=== PATIENT | female | born 1985 | race Caucasian/White ===

== ENCOUNTER 2018-06-24 21:46 | Emergency (ER) | payer OTHER ==
[~2018-06-24] VITALS: Ht 177.8 cm; Wt 106.6 kg
--- NOTE | 2018-06-24 22:06 | ED Headache ---
General Stated Complaint: HEAD PAIN History of Present Illness Date Seen by Provider: Jun 24, 2018 Time Seen by Provider: 21:55 Timing/Duration: 4-6 hours Severity/Quality: moderate Location: frontal (right), temporal (right) Prior Headaches/Recent Trauma: chronic headaches Modifying Factors: improves with exposure to light Associated Symptoms: nausea/vomiting (nausea, no vomiting) The patient is a pleasant 32-year-old female who presents for evaluation of a right frontal headache which began approximately 6 hours ago. It is in the frontal and right temporal region. She reports a history of chronic headaches/ migraines and states that she has had many several similar headaches to this. She does report that it is more severe than it usually is but that she has had similar severity headaches in the past. She denies any neck pain or neck stiffness, fevers or chills, recent head injury, focal weakness or focal numbness. She is alert and oriented 4, calm, appears to be in no distress. She tried taking Tylenol, ibuprofen, and Excedrin at home with little relief. She mentions that she used to be on Topamax in the past and this was very helpful but she is not currently taking any. Allergies and Home Medications Allergies Uncoded Allergies: PCN (Allergy, Unknown, 06/24/18) Patient Home Medication List Home Medication List Reviewed: Yes Review of Systems Review of Systems Constitutional: no symptoms reported Eyes: No Symptoms Reported Ears, Nose, Mouth, Throat: no symptoms reported Respiratory: no symptoms reported Cardiovascular: no symptoms reported Gastrointestinal: no symptoms reported Genitourinary: no symptoms reported Musculoskeletal: no symptoms reported Skin: no symptoms reported Psychiatric/Neurological: Headache All Other Systems Reviewed Negative Unless Noted: Yes Past Eouvkeg-Azaruw-Vsznjn Hx Patient Social History Recent Foreign Travel: No Contact w/Someone Who Travel: No Physical Exam Vital Signs Capillary Refill : Height, Weight, BMI Height: '" Weight: lbs. oz. kg; BMI Method: General Appearance: WD/WN HEENT: PERRL/EOMI, normal ENT inspection, TMs normal Neck: non-tender, full range of motion, supple, normal inspection Cardiovascular: regular rate, rhythm, no edema, no JVD Respiratory: chest non-tender, lungs clear, normal breath sounds, no respiratory distress Gastrointestinal: normal bowel sounds, non tender, soft Extremities: normal range of motion, non-tender, no pedal edema Psychiatric: alert, oriented x 3 Crainal Nerves: normal hearing, normal speech, PERRL Motor/Sensory: no motor deficit, no sensory deficit Skin: normal color, warm/dry Progress/Results/Core Measures Results/Orders Lab Results Laboratory Tests Test 06/24/18 22:18 Range/Units Urine Test NEGATIVE NEGATIVE My Orders Orders - PHAN MILLS DO Saline Lock/Iv-Start (06/24/18 21:59) Hcg,Qualitative Urine (06/24/18 22:06) Ketorolac Injection (Toradol Injection) (06/24/18 22:45) Metoclopramide Injection (Reglan Injecti (06/24/18 22:45) Diphenhydramine Injection (Benadryl Inje (06/24/18 22:45) Ns Iv 1000 Ml (Sodium Chloride 0.9%) (06/24/18 22:45) Medications Given in ED Current Medications Medications Dose Ordered Sig/Nay Route Start Time Stop Time Status Last Admin Dose Admin Diphenhydramine HCl 25 mg ONCE ONCE IVP 06/24/18 22:45 06/24/18 22:46 DC 06/24/18 23:55 25 MG Ketorolac Tromethamine 30 mg ONCE ONCE IVP 06/24/18 22:45 06/24/18 22:46 DC 06/24/18 23:53 30 MG Metoclopramide HCl 10 mg ONCE ONCE IVP 06/24/18 22:45 06/24/18 22:46 DC 06/24/18 23:49 10 MG Progress Progress Note : Time: 00:02 Progress Note @0002 - Patient reports that her headache is starting to get better. The patient was sleeping when I entered the room to evaluate her. @0018 -workup fails to reveal red flags for serious headache etiology. I did explain to the patient that our CT scanner was down but that transfer to obtain a CT head was an option and she declines. I do not feel that she needs a CT head at this time. She is sleeping in the room and easy to wake up and states that she is feeling much better. She will go home with a prescription for Imitrex. Advised the patient to follow up with her PCP in the next 2-3 days. Departure Impression Primary Impression: Migraine Disposition: 01 HOME, SELF-CARE Condition: Stable Departure-Patient Inst. Referrals: PETERSON SORTO APRN (PCP/Family) Primary Care Physician Patient Instructions: Migraine Headache (DC) Add. Discharge Instructions: Follow-up with your doctor in the next 2-3 days. Return to the emergency Department immediately for new or worsening symptoms. Take the prescribed medicine as directed, as needed for your migraine. Scripts Sumatriptan Succinate (Imitrex) 25 Mg Tablet 25 MG PO Q8H PRN for MIGRAINE for 7 Days, #20 TAB Prov: PHAN MILLS DO 06/25/18 PHAN MILLS DO Jun 24, 2018 22:06
[2018-06-24] MEDS ORDERED: KETOROLAC 30 MG/ML VIAL IVP ONE (22:45)
[2018-06-24] MEDS ORDERED: diphenhydrAMINE 50 MG/ML INJ (BENADRYL) IVP ONE (22:45)
[2018-06-24] MEDS ORDERED: NS IV 1000 ML 1,000 ML IV SCH (22:45)
[2018-06-24] MEDS ORDERED: METOCLOPRAMIDE INJ 10 MG/2 ML (REGLAN) IVP ONE (22:45)
--- NOTE | 2018-06-24 23:58 | NUR ---
Pt. sleeping stated her pain was now an 8 on the 1-10 scale.
[2018-06-25] MEDS ORDERED: SUMA25TA3 PO (00:18)
[2018-06-25 00:32] VITALS: BP 121/86
== END 2018-06-25 00:32 | disposition home or self-care (01) ==
LOC: ER FS 21:48
DX: G43.909 Migraine, unspecified, not intractable, without status migrainosus (principal); Z88.0 Allergy status to penicillin
CPT/HCPCS: 84703; 96361; 96374; 96375

== ENCOUNTER 2018-06-27 20:55 | Emergency (ER) | payer OTHER ==
[~2018-06-27] VITALS: Ht 177.8 cm; Wt 90.7 kg
[~2018-06-27 20:55] MED LIST: SUMA25TA3 PO
[2018-06-27] MEDS ORDERED: DICYCLOMINE 10 MG/ML (BENTYL) 2 ML AMP IM ONE (21:15)
[2018-06-27] MEDS ORDERED: FAMOTIDINE 20MG/2ML IV (PEPCID) IVP ONE (21:15)
[2018-06-27 22:07] LABS: BILIRUBIN,URINE NEGATIVE (NEGATIVE); CLARITY,URINE CLEAR; COLOR,URINE YELLOW; GLUCOSE, URINE (UA) NEGATIVE (NEGATIVE); KETONES,URINE NEGATIVE (NEGATIVE); LEUKOCYTE ESTERASE ,URINE TRACE (NEGATIVE); NITRITE,URINE NEGATIVE (NEGATIVE); PH,URINE 7.5 (5-9); PROTEIN,URINE NEGATIVE (NEGATIVE); UROBILINOGEN,URINE 0.2 MG/DL (NORMAL)
[2018-06-27 22:08] LABS: HCG,QUALITATIVE URINE NEGATIVE (NEGATIVE)
[2018-06-27] MEDS ORDERED: DICY20TA10 PO (22:24)
[2018-06-27] MEDS ORDERED: ONDA4TAB11 PO (22:24)
[2018-06-27 22:31] VITALS: BP 125/89
--- NOTE | 2018-06-28 05:47 | Diagnostic Imaging Report ---
CLINICAL INDICATION: Patient with nausea, vomiting that started today. Patient has history of tubal ligation. EXAMS: X-ray of the chest PA view and x-ray of the abdomen supine and upright views. COMPARISONS: None. FINDINGS: LUNGS/ PLEURA: Lungs are clear. There is no pneumothorax. There is no pleural effusion. MEDIASTINUM: Unremarkable. PULMONARY VASCULATURE: Unremarkable. HEART: Unremarkable. BONES/ EXTRATHORACIC SOFT TISSUE: Unremarkable. ABDOMEN AND PELVIS: There are nonspecific multiple air-fluid levels overlying the right abdomen which appear to involve the right colon region. The right colon region is not significantly dilated. There is a paucity of bowel gas overlying the left abdomen. There is no evidence of abdominal free air. There are no focal calcifications overlying the expected regions/ pathways of both kidneys, ureters, and bladder regions. IMPRESSION: 1: Nonspecific bowel gas pattern with air-fluid levels overlying the right colon region which are not significantly dilated. This may be related to colitis or diarrhea. Partial colonic obstruction or ileus cannot be completely excluded. If there is continued concern for obstruction, then CT scan would better evaluate. 2: There is no radiographic evidence of acute cardiopulmonary process. Dictated by: Dictated on workstation # [id number]
--- NOTE | 2018-07-22 09:46 | ED General ---
General Chief Complaint: Abdominal/GI Problems Stated Complaint: ABD PAIN Nursing Triage Note: COMPLAINT OF N/V/D TODAY Nursing Sepsis Screen: No Definite Risk History of Present Illness Date Seen by Provider: Jun 27, 2018 Time Seen by Provider: 11:11 Initial Comments 32-year-old female seen emergency For headache 3 days ago presents with abdominal pain nausea vomiting with occasional diarrhea. No dizziness lightheadedness. No fever chills, sweats. Reports mild abdominal cramping. No dysuria, urinary frequency or urgency or burning. No prior abdominal surgeries. Timing/Duration: 24 Hours Associated Systoms: Loss of Appetite Allergies and Home Medications Allergies Uncoded Allergies: PCN (Allergy, Unknown, 06/24/18) Home Medications Dicyclomine HCl 20 Mg Tablet, 20 MG PO QID Prescribed by: ROBERTA SAMUEL on 06/27/182223 Ondansetron 4 Mg Tab.rapdis, 4 MG PO Q6H Prescribed by: ROBERTA SAMUEL on 06/27/182223 Sumatriptan Succinate 25 Mg Tablet, 25 MG PO Q8H PRN for MIGRAINE Prescribed by: LIAN MCKEON on 06/25/18 0018 Patient Home Medication List Home Medication List Reviewed: Yes Review of Systems Review of Systems Constitutional: no symptoms reported EENTM: see HPI Cardiovascular: see HPI Genitourinary: see HPI Musculoskeletal: see HPI Psychiatric/Neurological: See HPI, Anxiety Hematologic/Lymphatic: See HPI Past Lsldrcq-Xibsea-Mxymod Hx Patient Social History Alcohol Use: Denies Use Recreational Drug Use: No Smoking Status: Current Everyday Smoker Type Used: Cigarettes 2nd Hand Smoke Exposure: Yes Recent Foreign Travel: No Contact w/Someone Who Travel: No Recent Infectious Disease Expo: No Physical Exam Vital Signs Capillary Refill : Less Than 3 Seconds Height, Weight, BMI Height: 5'10.00" Weight: 200lbs. oz. 90.361125kz; BMI Method:Estimated General Appearance: WD/WN, Anxious Eyes: Bilateral Eye Normal Inspection, Bilateral Eye PERRL, Bilateral Eye EOMI HEENT: PERRL/EOMI, TMs Normal Neck: Full Range of Motion, Normal Inspection, Supple Respiratory: Chest Non Tender, Lungs Clear, Normal Breath Sounds Cardiovascular: No Edema Gastrointestinal: Normal Bowel Sounds Back: Normal Inspection, No CVA Tenderness Neurologic/Psychiatric: Alert, Oriented x3, Abnormal position classification specialist II-XII, Abnormal Gait Skin: Normal Color Focused Exam Sepsis Stage: Ruled Out Progress/Results/Core Measures Suspected Sepsis Recent Fever Within 48 Hours: No Infection Criteria Present: None New/Unexplained Altered Menta: No Sepsis Screen: No Definite Risk SIRS Temperature:98.0 Pulse: 80 Respiratory Rate: 18 Blood Pressure 125 /89 Mean: 101 Results/Orders Vital Signs/I&O Capillary Refill : Less Than 3 Seconds Blood Pressure Mean: 101 Departure Communication (Admissions) No vomiting or diarrhea in the ED. Soft, nonsurgical. Recommend supportive care with PCP follow-up. Impression Primary Impression: Abdominal pain Additional Impressions: Nausea and vomiting Diarrhea Disposition: HOME, SELF-CARE Condition: Improved Departure-Patient Inst. Referrals: [facility] (PCP) Primary Care Physician Patient Instructions: Diarrhea in Adolescents and Adults, Acute Abdomen (Belly Pain), Adult (DC) Add. Discharge Instructions: Please take nausea medication as directed and Bentyl as needed for pain. Drink clear liquids only for the next 6-12 hours and gradually increase to bland diet as tolerated. Follow-up with your PCP if symptoms persist. Return to the ED if new or worsening symptoms All discharge instructions reviewed with patient and/or family. Voiced understanding. Scripts Ondansetron (Ondansetron Odt) 4 Mg Tab.rapdis 4 MG PO Q6H, #10 TAB Prov: ROBERTA SAMUEL DO 06/27/18 Dicyclomine HCl (Dicyclomine HCl) 20 Mg Tablet 20 MG PO QID, #20 TAB Prov: ROBERTA SAMUEL DO 06/27/18 ROBERTA SAMUEL DO Jul 22, 2018 09:46
== END 2018-06-27 22:35 | disposition home or self-care (01) ==
LOC: EDUNIT# 20:55 → ER FS 20:56
DX: R10.9 Unspecified abdominal pain (principal); R11.2 Nausea with vomiting, unspecified; R19.7 Diarrhea, unspecified; F17.210 Nicotine dependence, cigarettes, uncomplicated; Z88.0 Allergy status to penicillin
CPT/HCPCS: 74022; 81002; 84703; 96372; 96374

== ENCOUNTER → 2018-08-03 | Emergency (ER) | payer OTHER ==
[~2018-08-03] VITALS: Ht 165.1 cm; Wt 65.8 kg
[~2018-08-03] MED LIST changes: +DICY20TA10 PO; +ONDA4TAB11 PO
--- NOTE | 2018-08-03 12:30 | ED Cough/URI ---
General Stated Complaint: SORE THROAT Source: patient, other Exam Limitations: no limitations History of Present Illness Date Seen by Provider: Aug 03, 2018 Time Seen by Provider: 11:41 Initial Comments Patient presents to ER by private conveyance with chief complaint that she's had sore throat for past couple days. Her voice is changed. She's had malaise but no fevers or chills. She is concerned about cost something needs some antibiotics. She is not using vapor rubs humidifiers, Tylenol or Motrin. She does not smoke cigarettes. Her tubes are tied. Allergies and Home Medications Allergies Uncoded Allergies: PCN (Allergy, Unknown, 06/24/18) Home Medications Dicyclomine HCl 20 Mg Tablet, 20 MG PO QID Prescribed by: ROBERTA SAMUEL on 06/27/182223 Ondansetron 4 Mg Tab.rapdis, 4 MG PO Q6H Prescribed by: ROBERTA SAMUEL on 06/27/182223 Sumatriptan Succinate 25 Mg Tablet, 25 MG PO Q8H PRN for MIGRAINE Prescribed by: LINA MCKEON on 06/25/18 0018 Patient Home Medication List Home Medication List Reviewed: Yes Review of Systems Review of Systems Constitutional: No chills, No fever; malaise EENTM: No ear discharge, No hearing loss, No ear pain, No eye pain Respiratory: No cough, No phlegm, No short of breath Cardiovascular: No chest pain, No palpitations Gastrointestinal: No abdominal pain, No constipation, No diarrhea Past Zwbpiel-Bbkpdw-Dkrxnk Hx Patient Social History Alcohol Use: Denies Use Recreational Drug Use: No Smoking Status: Former Smoker Type Used: Cigarettes 2nd Hand Smoke Exposure: Yes Physical Exam Capillary Refill : Height: 5'10.00" Weight: 200lbs. oz. 90.609635sk; BMI Method:Estimated General Appearance: WD/WN, no apparent distress Eyes: Bilateral Eye Normal Inspection, Bilateral Eye PERRL, Bilateral Eye EOMI HEENT: PERRL/EOMI, normal ENT inspection, TMs normal, pharyngeal erythema; No tonsillar exudate Neck: non-tender, full range of motion, supple, normal inspection Progress/Results/Core Measures Suspected Sepsis SIRS Temperature: Pulse: Respiratory Rate: Blood Pressure / Mean: Results/Orders Lab Results Laboratory Tests Test 08/03/18 11:48 Range/Units Group A Streptococcus Screen NEGATIVE NEGATIVE My Orders Orders - ANTONI TORRES Rapid Strep A Screen (08/03/18 11:39) Vital Signs/I&O Capillary Refill : Departure Impression Primary Impression: Pharyngitis with viral syndrome Disposition: HOME, SELF-CARE Condition: Stable Departure-Patient Inst. Decision time for Depature: 12:29 Referrals: PETERSON SORTO APRN (PCP) Primary Care Physician JADEN PENN MD (Family) Primary Care Physician Patient Instructions: Viral Pharyngitis Add. Discharge Instructions: Humidifiers, hot tea's with honey or limiting as well as salt water gargles as necessary for your symptoms. You can use lozenges [id number]. Tylenol and ibuprofen may be helpful if you have pain. We will culture the swab and should have a result in 2 days. If it comes back positive we will call you as well as phone in an antibiotic for you. ANTONI TORRES Aug 03, 2018 12:30
[2018-08-03 12:36] VITALS: BP 151/100
== END | disposition home or self-care (01) ==
LOC: EDUNIT# 11:32 → ER FS 11:38
DX: J02.9 Acute pharyngitis, unspecified (principal); Z88.0 Allergy status to penicillin; Z87.891 Personal history of nicotine dependence
CPT/HCPCS: 87430; 99284

== ENCOUNTER 2019-02-24 01:59 | Emergency (ER) | payer SELFPAY ==
[~2019-02-24] VITALS: Ht 177.8 cm; Wt 111.5 kg
[2019-02-24] MEDS ORDERED: CYCL5TAB PO (02:10)
[2019-02-24] MEDS ORDERED: NAPR-1071 PO (02:11)
--- NOTE | 2019-02-24 02:11 | ED Neck-Back Pain/Injury ---
General Stated Complaint: NECK AND SHOULDER PAIN Source of Information: Patient, EMS History of Present Illness Date Seen by Provider: Feb 24, 2019 Time Seen by Provider: 02:05 Initial Comments 33-year-old female presents with right lateral neck spasm and right shoulder pain. Patient reports she's been having issues for at least a week. Patient was lying embellish number phone when she got spasm in her right lateral neck. She has no acute injury. She is had Flexeril for this in the past but could not find it. Patient did not take anything for it. She called EMS and came to the ER. No numbness tingling or bowel or bladder issues. No other systemic complaints. Allergies and Home Medications Allergies Uncoded Allergies: pcn (Allergy, Mild, 02/24/19) Patient Home Medication List Home Medication List Reviewed: Yes Review of Systems Constitutional: no symptoms reported, see HPI Respiratory: no symptoms reported Cardiovascular: no symptoms reported Gastrointestinal: no symptoms reported Musculoskeletal: see HPI Skin: no symptoms reported Past Iqhyoag-Tgredg-Kyiijb Hx Past Med/Social Hx: Reviewed Nursing Past Med/Soc Hx Patient Social History Recent Foreign Travel: No Contact w/Someone Who Travel: No Physical Exam Vital Signs Capillary Refill : Height, Weight, BMI Height: '" Weight: lbs. oz. kg; BMI Method: General Appearance: No Apparent Distress, WD/WN Neck: Other (mild tenderness along the right trapezius distribution with mild spasm) Cardiovascular: Regular Rate, Rhythm Respiratory: Lungs Clear, Normal Breath Sounds Neurologic/Psychiatric: Alert, Oriented x3, No Motor/Sensory Deficits, Normal Mood/Affect, loans consultant II-XII Norm as Tested Skin: Normal Color, Warm/Dry Progress/Results/Core Measures Results/Orders My Orders Orders - IAIN ALMEIDA DO Ketorolac Injection (Toradol Injection) (02/24/19 02:15) Orphenadrine Injection (Norflex Injectio (02/24/19 02:15) Departure Impression Primary Impression: Strain of cervical portion of right trapezius muscle Additional Impression: Strain of right trapezius muscle Qualified Codes: S46.811A - Strain of other muscles, fascia and tendons at shoulder and upper arm level, right arm, initial encounter Disposition: 01 HOME, SELF-CARE Condition: Stable Departure-Patient Inst. Patient Instructions: Cervical Muscle Strain, Muscle Strain, Generalized Neck Pain (DC) Scripts Naproxen (Naprosyn) 500 Mg Tablet 500 MG PO BID, #30 TAB 0 Refills Prov: IAIN ALMEIDA DO 02/24/19 Cyclobenzaprine HCl (Cyclobenzaprine HCl) 5 Mg Tablet 5 MG PO Q8H PRN for PAIN-MILD, #10 TAB Prov: IAIN ALMEIDA DO 02/24/19 IAIN ALMEIDA DO Feb 24, 2019 02:10
[2019-02-24] MEDS ORDERED: KETOROLAC 60 MG/2 ML VIAL IM ONE (02:15)
[2019-02-24] MEDS ORDERED: ORPHENADRINE 60 MG/2 ML (NORFLEX) AMP IM ONE (02:15)
[2019-02-24 02:20] VITALS: BP 149/90
== END 2019-02-24 02:20 | disposition home or self-care (01) ==
LOC: ER FS 02:03 → MERGE 02:03 → ER FS 02:20
DX: S29.012A Strain of muscle and tendon of back wall of thorax, initial encounter (principal); Z88.0 Allergy status to penicillin
CPT/HCPCS: 99284

== ENCOUNTER 2019-08-28 20:17 | Observation (INO) | payer SELFPAY ==
[~2019-08-28] VITALS: Ht 180.3 cm; Wt 111.1 kg
[~2019-08-28 20:17] MED LIST changes: +CYCL5TAB PO; +NAPR-1071 PO
--- NOTE | 2019-08-28 20:24 | NUR ---
Around 1944 pt ingested 4 pills of Remeron 15mg, 2 pills of Baclofen 10mg, 4 pills of Hydroxyzine 25mg, 4 pills of Buspirone 5mg, 4 pills of Buspirone 7.5mg, and 5 pills of Alprazolam 1mg.
--- OUTSIDE RECORDS SUMMARY | 2019-08-28 20:28 | XMS REPORT ---
Author Author [facility] Organization [facility] Address Unknown Phone Unavailable Allergies No Known Allergy Information Encounters Program Name Primary Diagnosis Admission Date/Time Discharge Date/Time Family Preservation ThuJun 16 14:04:00 EST 2019 Immunizations No Known Immunizations Lab Results No Known Laboratory Results Medical Equipment No Known Medical Equipment Medications No Known Medication Information Treatment Plan No Treatment Plan Information Problems No Known Problems Procedures No Known Procedures Social History Social History Observation Description Date Sex Female ThuJul 30 00:00:00 EST 1985 Vital Signs No Known Vitals
--- OUTSIDE RECORDS SUMMARY | 2019-08-28 20:28 | XMS REPORT ---
Author Author Darya PENN Organization [facility] Address [address] [address] Care Team Providers Care Train Director Name Role Phone JADEN PENN Unavailable PROBLEMS Type Condition ICD9-CM Code [id number] Code Onset Dates Condition S tatus SNOMED Code Problem Menorrhagia with irregular cycle N92.1 Active 337543858 Problem Primary insomnia F51.01 Active 397 2004 Problem Generalized anxiety disorder F41.1 A ctive [id number] Problem Hypothyroidism, unspecified type E03.9 Active [id number] ALLERGIES Substance Reaction Event Type Date Status Penicillamine rash Drug Allergy Jul, Active ENCOUNTERS Encounter Location Date Diagnosis [facility] [address] [place] [phone] Jul, Generalized anxiety disorder F41.1 and Primary insomnia F51.01 [facility] [address] [facility] [id number] [place] [address] Jul, Influenza A J10.1 ; Fever and chills R50 .9 and Cough R05 [place] [address] [place] [address] [phone] Jul, Influenza A J10.1 [facility] [address] [place] [address] [phone] Jul, [facility] [address] [place] [address] [phone] Jun, [facility] [address] [place] [phone] Jun, Generalized anxiety disorder F41.1 and Primary insomnia F51.01 [facility] [address] [place] [address] [phone] May, [facility] [address] [place] [address] [phone] 14 May, 2018 Hypothyroidism, unspecified type E03.9 ; Generalized anxiety disorder F41.1 and Menorrhagia with irregular cycle N92.1 IMMUNIZATIONS No Known Immunizations SOCIAL HISTORY Never Assessed REASON FOR VISIT Congestion, fever. DARREN Santillan PLAN OF CARE Activity Details Follow Up for worsening or failure to resolve. Reason: VITAL SIGNS Height 70 in 2018-07-09 Weight 235.8 lbs 2018-07-09 Temperature 101.1 degrees Fahrenheit 2018-07-09 Respiratory Rate 18 2018-07-09 BMI 33.83 kg/m2 2018-07-09 Blood pressure systolic 118 mmHg 2018-07-09 Blood pressure diastolic 80 mmHg 2018-07-09 MEDICATIONS Medication Instructions Dosage Frequency Start Date End Date Duration S tatus Remeron 15 mg Orally Once a day 1-2 tablet at bedtime 24h 30 day(s) Active Imitrex 25 MG Orally Twice a day 1 tablet as needed 12h Jul, 7 days Active Tamiflu 75 MG Orally Twice a day 1 capsule 12h Jul, 5 day(s) Active BusPIRone HCl 5 MG Orally Twice a day 1 tablet as needed 12h 30 days Active RESULTS No Results PROCEDURES No Known procedures INSTRUCTIONS MEDICATIONS ADMINISTERED No Known Medications MEDICAL (GENERAL) HISTORY Type Description Date Medical History anxiety Medical History depression Medical History spondylolithesis Surgical History tubal ligation Surgical History d&C x2 Hospitalization History anemia
--- OUTSIDE RECORDS SUMMARY | 2019-08-28 20:28 | XMS REPORT | Continuity of Care Document ---
Author Organization Unknown Address Unknown Phone Unavailable Allergies Active Description Code Type Severity Reaction Onset Reported/Identified Relationship to Patient Clinical Status Yes pcn pcn Mild N/A 02/24/2019 Medications Medication Packaging Start Date St op Date Route Dosage Sig MECLIZINE TAB, 25 MG (ANTIVERT) 05/15/2019 05/15/2019 ORAL 1 NS 0.9##37; 1000 ML 05/15/2019 05/15/2019 IV 1 Problems Date Dx Coded Attending Type Code Diagnosis Diagnosed By 05/16/2019 LINA GIFFORD [id number] Acute serous otitis media, left ear 05/16/2019 LINA GIFFORD R42 Dizziness and giddiness 05/16/2019 LINA GIFFORD R55 Syncope and collapse Procedures There is no data. Results Test Result Range CBCD (AUTO DIFF) - 05/15/19 22:04 WBC 7.6 x10 3UL 4.0 - 10.0 NEUTROPHIL % 59.5 % 30.0 - 75.0 LYMPHOCYTES % 32.5 % 18.0 - 40.0 MONOCYTES % 5.8 % 1.0 - 8.0 EOSINOPHILS % 1.7 % 0.0 - 3.0 BASOPHILS % 0.4 % 0.0 - 2.0 IMMAT GRAN % 0.1 % 0.0 - 1.0 RBC 4.17 MIL/UL 4.20 - 5.00 HGB 11.3 g/dL 12.0 - 15.0 HCT 34.4 % 37.0 - 47.0 MCV 83 FL 80 - 100 MCH 27.1 PG 26.0 - 35.0 MCHC 32.8 % 28.0 - 37.3 RDW 14.6 %CV 10.5 - 14.5 PLATELETS 272 X10 3UL 150 - 400 NRBC 0 % 0 - 0 DIFFERENTIAL AUTOMATED NRG COMP METAB PANEL - 05/15/19 22:04 GLUCOSE 88 MG/DL 65 - 110 BUN 16 MG/DL 7 - 21 CREATININE 0.5 mg/dl 0.7 - 1.5 BUN/CRE RATIO 32.0 7.0 - 25.0 SODIUM 140 MMOL/L 137 - 145 POTASSIUM 3.5 MMOL/L 3.6 - 5.0 CHLORIDE 109 MMOL/L 98 - 107 CO2 22 mmol/L 22 - 30 SGOT 27 U/L 8 - 39 SGPT 13 U/L 0 - 34 ALKALINE PHOS 83 U/L 20 - 155 TOTAL BILI 0.40 MG/DL 0.20 - 1.20 TOTAL PROTEIN 7.4 G/DL 6.3 - 8.2 ALBUMIN 4.1 G/DL 3.5 - 5.0 CALCIUM 9.1 MG/DL 8.4 - 10.2 AGE 33 YEARS NRG gfr 149 NRG eGFR >60 mL/min/BSA NRG TROPONIN I - 05/15/19 22:04 TROPONIN I <0.012 NG/ML 0.000 - 0.030 PREG URINE TEST - 05/15/19 22:26 URINE PREGNCY NEGATIVE NR: NEGATIVE DRUG SCREEN, RAPID (URINE) - 05/15/19 22 :26 DRUG SCREEN, RAPID (URINE) LAB NRG METHAMPHETAMINE NEGATIVE NR: NEGATAIVE COCAINE NEGATIVE NR: NEGATIVE MARIJUANA (THC) NEGATIVE NR: NEGATIVE MDMA NEGATIVE NR: NEGATIVE METHADONE NEGATIVE NR: NEGATIVE OPIATES NEGATIVE NR: NEGATIVE BENZODIAZEPINES NEGATIVE NR: NEGATIVE TCA NEGATIVE NR: NEGATIVE BARBITUATES NEGATIVE NR: NEGATIVE PCP NEGATIVE NR: NEGATIVE AMPHETAMINES NEGATIVE NR: NEGATIVE OXYCODONE NEGATIVE NR: NEGATIVE UA COMP CULT - 05/15/19 22:26 METHOD? Void NRG URINE COLOR YELLOW NR:YELLOW TURBIDITY CLEAR NR:CLEAR UR GLUCOSE NEGATIVE NR:NEGATIVE BILIRUBIN NEGATIVE NR:NEGATIVE KETONES NEGATIVE NR:NEGATIVE SPEC GRAVITY >=1.030 1.005-1.015 BLOOD 2+ NR:NEGATIVE pH 6.5 5.0 - 8.0 PROTEIN NEGATIVE NR:NEGATIVE UROBILINOGEN 1.0 <1.0 NITRITE NEGATIVE NR:NEGATIVE LEUK ESTERASE NEGATIVE NR:NEGATIVE MICROSCOPIC PERFORMED NRG WBC/HPF 0-5 HPF 0-4 /HPF RBC/HPF 4-10 HPF 0-4 /HPF BACTERIA TRACE NR: NEGATIVE MUCUS LIGHT NR: NEGATIVE EPI CELLS/LPF 25-50 NR: NONE SEEN REFLEX CULTURE? NO NRG MMR TITER - 08/23/19 15:26 RUBELLA ANTIBODY (IGG) 2.74 index NRG MEASLES ANTIBODY (IGG) 196.00 AU/mL NRG MUMPS VIRUS ANTIBODY (IGG) 143.00 AU/mL NRG HEP B CORE ANTIBODY, TOTAL IgG/IgM - 15:26 HEPATITIS B CORE AB TOTAL NON-REACTIVE NON-REACTIVE VARICELLA ANTIBODY, IgG - 08/23/19 15:26 VARICELLA ZOSTER VIRUS ANTIBODY (IGG) 732.80 index NRG Encounters ACCT No. Visit Date/Time Discharge Status Pt. Type Provider Facility Loc./Unit Complaint [id number] 05/15/2019 21:16:00 05/16/2019 00:22: 00 DIS Emergency LINA GIFFORD 014 NAUSEA, VOMITING, DIZZY [id number] 08/23/2019 14:40:00 08/23/2019 23:59: 59 CLS Outpatient PETERSON SORTO [facility] [id number] 08/23/2019 14:40:00 Document Registration [id number] 05/15/2019 21:16:00 Document Registration [id number] 02/24/2019 02:03:00 019 02:20:00 DIS Emergency IAIN ALMEIDA DO [facility] ER FS NECK AND SHOULDER PAIN
--- NOTE | 2019-08-28 20:36 | ED Psychosocial ---
General Stated Complaint: SUICIDAL Source: EMS Exam Limitations: intoxication History of Present Illness Date Seen by Provider: Aug 28, 2019 Time Seen by Provider: 20:25 Initial Comments Patient brought in by EMS after polypharmacy overdose full SSRIs benzos. Around 1700 due to family discord states she had suicidal intentions denies previous suicidal gestures she does have anxiety disorder patient is too sleepy to her cooperate with a detailed review of systems due to her intoxication Timing/Duration: this afternoon Associated Symptoms: ingestion Allergies and Home Medications Allergies Uncoded Allergies: pcn (Allergy, Mild, 02/25/19) PCN (Allergy, Unknown, 06/24/18) Home Medications Cyclobenzaprine HCl 5 Mg Tablet, 5 MG PO Q8H PRN for PAIN-MILD Prescribed by: IAIN ALMEIDA on 02/24/19 0210 Dicyclomine HCl 20 Mg Tablet, 20 MG PO QID Prescribed by: ROBERTA SAMUEL on 06/27/182223 Naproxen 500 Mg Tablet, 500 MG PO BID Prescribed by: IAIN ALMEIDA on 02/24/19 021 Ondansetron 4 Mg Tab.rapdis, 4 MG PO Q6H Prescribed by: ROBERTA SAMUEL on 06/27/18 222 Sumatriptan Succinate 25 Mg Tablet, 25 MG PO Q8H PRN for MIGRAINE Prescribed by: LINA CHISHOLM on 06/25/18 0018 Patient Home Medication List Home Medication List Reviewed: Yes Review of Systems Constitutional: see HPI EENTM: see HPI Respiratory: see HPI Cardiovascular: see HPI Gastrointestinal: see HPI Genitourinary: see HPI Musculoskeletal: see HPI Skin: see HPI Psychiatric/Neurological: No Symptoms Reported, See HPI Past Kxgqmsh-Ozyash-Xpeaev Hx Patient Social History Type Used: Cigarettes 2nd Hand Smoke Exposure: Yes Recent Foreign Travel: No Contact w/Someone Who Travel: No Recent Hopitalizations: No Seasonal Allergies Seasonal Allergies: No Past Medical History Surgeries: No Respiratory: No Cardiac: No Neurological: No 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 oz. 65.050313tv; 35.00 BMI Method:Estimated General Appearance: WD/WN, no apparent distress, other (fever with somewhat clear speech) HEENT: PERRL/EOMI, pharynx normal Neck: non-tender, supple Respiratory: chest non-tender, lungs clear, normal breath sounds Cardiovascular: regular rate, rhythm, no edema Gastrointestinal: normal bowel sounds, non tender Extremities: normal range of motion, non-tender, normal inspection Neurologic/Psychiatric: human resources admin II-XII nml as tested, no motor/sensory deficits, oriented x 3, depressed affect Appearance/Memory: impaired insight Behavior/Eye Contact: cooperative Thoughts/Hallucinations: normal thought pattern; No no apparent hallucination Skin: normal color, warm/dry Progress/Results/Core Measures Results/Orders Lab Results Laboratory Tests Test 08/28/19 20:34 08/28/19 20:50 Range/Units White Blood Count 8.7 4.3-11.0 10^3/uL Red Blood Count 4.66 4.35-5.85 10^6/uL Hemoglobin 12.3 11.5-16.0 G/DL Hematocrit 39 35-52 % Mean Corpuscular Volume 84 80-99 FL Mean Corpuscular Hemoglobin 26 25-34 PG Mean Corpuscular Hemoglobin Concent 32 32-36 G/DL Red Cell Distribution Width 14.6 H 10.0-14.5 % Platelet Count 284 130-400 10^3/uL Mean Platelet Volume 10.2 7.4-10.4 FL Neutrophils (%) (Auto) 69 42-75 % Lymphocytes (%) (Auto) 25 12-44 % Monocytes (%) (Auto) 5 0-12 % Eosinophils (%) (Auto) 1 0-10 % Basophils (%) (Auto) 0 0-10 % Neutrophils # (Auto) 6.0 1.8-7.8 X 10^3 Lymphocytes # (Auto) 2.2 1.0-4.0 X 10^3 Monocytes # (Auto) 0.5 0.0-1.0 X 10^3 Eosinophils # (Auto) 0.1 0.0-0.3 10^3/uL Basophils # (Auto) 0.0 0.0-0.1 10^3/uL Sodium Level 140 135-145 MMOL/L Potassium Level 3.8 3.6-5.0 MMOL/L Chloride Level 105 98-107 MMOL/L Carbon Dioxide Level 22 21-32 MMOL/L Anion Gap 13 5-14 MMOL/L Blood Urea Nitrogen 12 7-18 MG/DL Creatinine 0.62 0.60-1.30 MG/DL Estimat Glomerular Filtration Rate > 60 BUN/Creatinine Ratio 19 Glucose Level 98 70-105 MG/DL Calcium Level 9.1 8.5-10.1 MG/DL Corrected Calcium 9.0 8.5-10.1 MG/DL Total Bilirubin < 0.2 0.1-1.0 MG/DL Aspartate Amino Transf (AST/SGOT) 12 5-34 U/L Alanine Aminotransferase (ALT/SGPT) 8 0-55 U/L Alkaline Phosphatase 92 40-136 U/L Total Protein 7.0 6.4-8.2 GM/DL Albumin 4.1 3.2-4.5 GM/DL Salicylates Level < 0.3 L 5.0-20.0 MG/DL Acetaminophen Level < 10 L 10-30 UG/ML Serum Alcohol < 10 <10 MG/DL Urine Color STRAW Urine Clarity CLEAR Urine pH 6.5 5-9 Urine Specific [place] <=1.005 1.016-1.022 Urine Protein NEGATIVE NEGATIVE Urine Glucose (UA) NEGATIVE NEGATIVE Urine Ketones NEGATIVE NEGATIVE Urine Nitrite NEGATIVE NEGATIVE Urine Bilirubin NEGATIVE NEGATIVE Urine Urobilinogen 0.2 < = 1.0 MG/DL Urine Leukocyte Esterase NEGATIVE NEGATIVE Urine RBC (Auto) NEGATIVE NEGATIVE Urine RBC 0-2 /HPF Urine WBC 2-5 /HPF Urine Crystals PRESENT H /LPF Urine Bacteria TRACE /HPF Urine Casts NONE /LPF Urine Mucus SMALL H /LPF Urine Other SODIUM URATE CRYSTAL /HPF Urine Culture Indicated YES Urine Opiates Screen NEGATIVE NEGATIVE Urine Oxycodone Screen NEGATIVE NEGATIVE Urine Methadone Screen NEGATIVE NEGATIVE Urine Propoxyphene Screen NEGATIVE NEGATIVE Urine Barbiturates Screen NEGATIVE NEGATIVE Ur Tricyclic Antidepressants Screen NEGATIVE NEGATIVE Urine Phencyclidine Screen NEGATIVE NEGATIVE Urine Amphetamines Screen NEGATIVE NEGATIVE Urine Methamphetamines Screen NEGATIVE NEGATIVE Urine Benzodiazepines Screen POSITIVE H NEGATIVE Urine Cocaine Screen NEGATIVE NEGATIVE Urine Cannabinoids Screen NEGATIVE NEGATIVE My Orders Orders - LAMBERT,ANTHONY B DO Ua Culture If Indicated (08/28/19 20:26) Cbc With Automated Diff (08/28/19 20:26) Comprehensive Metabolic Panel (08/28/19 20:26) Alcohol (08/28/19 20:26) Drug Screen Stat (Urine) (08/28/19 20:26) Acetaminophen (08/28/19 20:26) Salicylate (08/28/19 20:26) Ekg Tracing (08/28/19 20:26) Ed Iv/Invasive Line Start (08/28/19 20:26) Monitor-Rhythm Ecg Trace Only (08/28/19 20:26) Bh Status Checks/Observation Q15M (08/28/19 20:26) Ed Iv/Invasive Line Start (08/28/19 20:26) Urine Bedside (08/28/19 20:26) Ns Iv 500 Ml (Sodium Chloride 0.9%) (08/28/19 20:30) Urine Culture (08/28/19 20:50) Vital Signs/I&O 08/28/19 20:24 Temp 36.2 Pulse 80 Resp 16 B/P (MAP) 132/77 (95) Pulse Ox 96 O2 Delivery Room Air Progress Progress Note : Time: 20:35 Progress Note Patient 3-1/2-4 hours into a polypharmacy overdose for suicide intentions. He will manically stable but somewhat sedate will require admission to the hospital for stepdown unit monitoring observation and psychiatric evaluation Initial ECG Impression Date: Aug 28, 2019 Initial ECG Impression Time: 20:36 Initial ECG Rate: 81 Initial ECG Rhythm: Normal Sinus Departure Impression Primary Impression: Drug overdose Additional Impression: Suicidal overdose Disposition: ADMITTED INPATIENT Condition: Stable Admissions Decision to Admit Reason: Admit from ER (General) Decision to Admit/Date: Aug 28, 2019 Time/Decision to Admit Time: 21:20 Transfer Transfer Reason: Exceeds level of care Time Spoke to Accepting Phy: 21:25 Transfer Progress Notes Patient's oxygen saturations are stable on room air blood pressure is normal heart rate is normal EKG shows no conduction abnormalities 4-1/2 hours into her overdose she is still somewhat sedate but is arousable but tactile stimulation and is agreeable to be transferred to [place] for overnight admission and psychiatric evaluation Method of Transfer: EMS (ALS) Departure-Patient Inst. Referrals: PETERSON SORTO APRN (PCP) Primary Care Physician JADEN PENN MD (Family) Primary Care Physician Patient Instructions: Suicide Prevention ANTHONY LAMBERT DO Aug 28, 2019 20:36
[2019-08-28 20:40] LABS: HEMATOCRIT 39 % (35-52); HEMOGLOBIN 12.3 G/DL (11.5-16.0); MEAN CORPUSCULAR HEMOGLOBIN 26 PG (25-34); WHITE BLOOD COUNT 8.7 10^3/uL (4.3-11.0)
[2019-08-28 20:41] LABS: BASOPHILS % (AUTO) 0 % (0-10); EOSINOPHILS # (AUTO) 0.1 10^3/uL (0.0-0.3); EOSINOPHILS % (AUTO) 1 % (0-10); LYMPHOCYTES # (AUTO) 2.2 X 10^3 (1.0-4.0); LYMPHOCYTES % (AUTO) 25 % (12-44); MEAN CORPUSCULAR HGB CONC 32 G/DL (32-36); MEAN CORPUSCULAR VOLUME 84 FL (80-99); MEAN PLATELET VOLUME 10.2 FL (7.4-10.4); MONOCYTES # (AUTO) 0.5 X 10^3 (0.0-1.0); MONOCYTES % (AUTO) 5 % (0-12); NEUTROPHILS % (AUTO) 69 % (42-75); PLATELET COUNT 284 10^3/uL (130-400); RED CELL DISTRIBUTION WIDTH 14.6 % (10.0-14.5)
[2019-08-28] MEDS: NS IV 500 ML 500 ML IV SCH (20:53)
[2019-08-28 21:02] LABS: POTASSIUM 3.8 MMOL/L (3.6-5.0); SODIUM 140 MMOL/L (135-145)
[2019-08-28 21:03] LABS: ACETAMINOPHEN < 10 UG/ML (10-30); ALANINE AMINOTRANSFERASE 8 U/L (0-55); ALBUMIN 4.1 GM/DL (3.2-4.5); ALKALINE PHOSPHATASE 92 U/L (40-136); BILIRUBIN,TOTAL < 0.2 MG/DL (0.1-1.0); BUN/CREATININE RATIO 19; CALCIUM 9.1 MG/DL (8.5-10.1); CARBON DIOXIDE 22 MMOL/L (21-32); CHLORIDE 105 MMOL/L (98-107); CREATININE SERUM 0.62 MG/DL (0.60-1.30); GFR ESTIMATED > 60; GLUCOSE 98 MG/DL (70-105); SALICYLATE < 0.3 MG/DL (5.0-20.0)
[2019-08-28 21:03] LABS: CLARITY,URINE CLEAR; COLOR,URINE STRAW
[2019-08-28 21:04] LABS: BACTERIA,URINE TRACE /HPF; BILIRUBIN,URINE NEGATIVE (NEGATIVE); GLUCOSE, URINE (UA) NEGATIVE (NEGATIVE); KETONES,URINE NEGATIVE (NEGATIVE); LEUKOCYTE ESTERASE ,URINE NEGATIVE (NEGATIVE); NITRITE,URINE NEGATIVE (NEGATIVE); PH,URINE 6.5 (5-9); PROTEIN,URINE NEGATIVE (NEGATIVE); RBC,URINE 0-2 /HPF; URINE OTHER SODIUM URATE CRYSTAL /HPF
[2019-08-28 21:07] LABS: AMPHETAMINE SCREEN, URINE NEGATIVE (NEGATIVE); BARBITURATE SCREEN URINE NEGATIVE (NEGATIVE); BENZODIAZEPINES SCREEN URINE POSITIVE (NEGATIVE); CANNABINOID SCREEN, URINE NEGATIVE (NEGATIVE); COCAINE SCREEN URINE NEGATIVE (NEGATIVE); METHADONE STAT NEGATIVE (NEGATIVE); METHAMPHETAMINE SCREEN URINE S NEGATIVE (NEGATIVE); OPIATE SCREEN URINE NEGATIVE (NEGATIVE); OXYCODONE STAT NEGATIVE (NEGATIVE); PROPOXYPHENE STAT NEGATIVE (NEGATIVE); TRICYCLIC ANTIDEPRESSANTS SCRE NEGATIVE (NEGATIVE)
--- OUTSIDE RECORDS SUMMARY | 2019-08-28 22:10 | XMS REPORT | Continuity of Care Document ---
[...] Status Pt. Type Provider Facility Loc./Unit Complaint [id number] 05/15/2019 21:16:00 05/16/2019 00:22: 00 DIS Emergency LINA GIFFORD 014 NAUSEA, VOMITING, DIZZY [id number] 08/23/2019 14:40:00 08/23/2019 23:59: 59 CLS Outpatient PETERSON SORTO [facility] [id number] 08/23/2019 14:40:00 Document Registration [id number] 05/15/2019 21:16:00 Document Registration [id number] 02/24/2019 02:03:00 019 02:20:00 DIS Emergency IAIN ALMEIDA DO [facility] ER FS NECK AND SHOULDER PAIN
--- NOTE | 2019-08-28 23:20 | NUR ---
JANA RAHEEM admitted to room CU3-1, with an admitting diagnosis of POLY DRUG OVERDOSE , on 08/28/19 from [facility] via [facility], accompanied by EMS STAFF. JANA MACIEL introduced to surroundings, call light, bed controls, phone, TV, temperature control, lights, meal times, smoking policy, visitor policy, side rail policy, bathrooms and showers. Patient Rights given to patient in the handbook.JANA MACIEL verbalizes understanding that [facility] is not responsible for the loss or damage to any personal effects or valuables that are kept in the patients posession during their hospitalization. JANA MACIEL verbalizes understanding of Interdisciplinary Patient Education. Patient and/or family were informed about the Rapid Response Team and its purpose.
[2019-08-28 23:30] VITALS: BP 124/85
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
[2019-08-28] MEDS ORDERED: NS IV 1000 ML 1,000 ML ONE (23:34)
[2019-08-28 23:45] VITALS: BP 100/64
[2019-08-29] VITALS (9 sets, daily range): BP systolic 96–132; BP diastolic 64–84
[2019-08-29] MEDS: NS IV 1000 ML 1,000 ML IV SCH ×3 (00:33→14:25)
[2019-08-29] MEDS: NS IV 500 ML 500 ML IV SCH (12:41)
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
--- NOTE | 2019-08-29 13:26 | Short Stay Summary ---
HPI History of Present Illness: 34 yo female brought to ER after taking an unknown quantity of benzo, buspirone, baclofen and possibly others. She states she was not trying to hurt herself, just had a bad weekend and wanted to sleep. She denies suicidal ideation currently and feels well, is just hungry. She sees a Psychiatrist, therapist and has a correctional casework specialist. Source: patient Date seen by provider: Aug 29, 2019 Time Seen by Provider: 10:20 Attending Physician Silvina Patel MD PCP Trisha Perez Aprn Consult Date of Admission Aug 28, 2019 at 22:05 Home Medications Home Medications Reviewed patient Home Medication Reconciliation performed by pharmacy medication reconciliations life support technician and/or nursing. Patients Allergies have been reviewed. Allergies Uncoded Allergies: pcn (Allergy, Mild, 02/25/19) PCN (Allergy, Unknown, 06/24/18) DMB-Ifroef-Tbsxni Hx Patient Social History Alcohol Use: Denies Use Recreational Drug Use: No Smoking Status: Current Everyday Smoker Type Used: Cigarettes 2nd Hand Smoke Exposure: Yes Recent Foreign Travel: No Contact w/other who traveled: No Recent Hopitalizations: No Recent Infectious Disease Expo: No Past Medical History PMhx: Depression Anxiety SurgHx: D&C x 2 Family Medical History Significant Family History: Diabetes Review of Systems (CHC) Constitutional: No fever EENTM: No nose congestion, No throat pain Respiratory: No short of breath Cardiovascular: No chest pain Gastrointestinal: No abdominal pain, No constipation, No diarrhea, No nausea, No vomiting Genitourinary: No dysuria Skin: No rash Psychiatric/Neurological: See HPI Reviewed Test Results Reviewed Test Results Lab Laboratory Tests Test 08/28/19 20:34 08/28/19 20:50 Range/Units White Blood Count 8.7 4.3-11.0 10^3/uL Red Blood Count 4.66 4.35-5.85 10^6/uL Hemoglobin 12.3 11.5-16.0 G/DL Hematocrit 39 35-52 % Mean Corpuscular Volume 84 80-99 FL Mean Corpuscular Hemoglobin 26 25-34 PG Mean Corpuscular Hemoglobin Concent 32 32-36 G/DL Red Cell Distribution Width 14.6 H 10.0-14.5 % Platelet Count 284 130-400 10^3/uL Mean Platelet Volume 10.2 7.4-10.4 FL Neutrophils (%) (Auto) 69 42-75 % Lymphocytes (%) (Auto) 25 12-44 % Monocytes (%) (Auto) 5 0-12 % Eosinophils (%) (Auto) 1 0-10 % Basophils (%) (Auto) 0 0-10 % Neutrophils # (Auto) 6.0 1.8-7.8 X 10^3 Lymphocytes # (Auto) 2.2 1.0-4.0 X 10^3 Monocytes # (Auto) 0.5 0.0-1.0 X 10^3 Eosinophils # (Auto) 0.1 0.0-0.3 10^3/uL Basophils # (Auto) 0.0 0.0-0.1 10^3/uL Sodium Level 140 135-145 MMOL/L Potassium Level 3.8 3.6-5.0 MMOL/L Chloride Level 105 98-107 MMOL/L Carbon Dioxide Level 22 21-32 MMOL/L Anion Gap 13 5-14 MMOL/L Blood Urea Nitrogen 12 7-18 MG/DL Creatinine 0.62 0.60-1.30 MG/DL Estimat Glomerular Filtration Rate > 60 BUN/Creatinine Ratio 19 Glucose Level 98 70-105 MG/DL Calcium Level 9.1 8.5-10.1 MG/DL Corrected Calcium 9.0 8.5-10.1 MG/DL Total Bilirubin < 0.2 0.1-1.0 MG/DL Aspartate Amino Transf (AST/SGOT) 12 5-34 U/L Alanine Aminotransferase (ALT/SGPT) 8 0-55 U/L Alkaline Phosphatase 92 40-136 U/L Total Protein 7.0 6.4-8.2 GM/DL Albumin 4.1 3.2-4.5 GM/DL Salicylates Level < 0.3 L 5.0-20.0 MG/DL Acetaminophen Level < 10 L 10-30 UG/ML Serum Alcohol < 10 <10 MG/DL Urine Color STRAW Urine Clarity CLEAR Urine pH 6.5 5-9 Urine Specific [place] <=1.005 1.016-1.022 Urine Protein NEGATIVE NEGATIVE Urine Glucose (UA) NEGATIVE NEGATIVE Urine Ketones NEGATIVE NEGATIVE Urine Nitrite NEGATIVE NEGATIVE Urine Bilirubin NEGATIVE NEGATIVE Urine Urobilinogen 0.2 < = 1.0 MG/DL Urine Leukocyte Esterase NEGATIVE NEGATIVE Urine RBC (Auto) NEGATIVE NEGATIVE Urine RBC 0-2 /HPF Urine WBC 2-5 /HPF Urine Crystals PRESENT H /LPF Urine Bacteria TRACE /HPF Urine Casts NONE /LPF Urine Mucus SMALL H /LPF Urine Other SODIUM URATE CRYSTAL /HPF Urine Culture Indicated YES Urine Opiates Screen NEGATIVE NEGATIVE Urine Oxycodone Screen NEGATIVE NEGATIVE Urine Methadone Screen NEGATIVE NEGATIVE Urine Propoxyphene Screen NEGATIVE NEGATIVE Urine Barbiturates Screen NEGATIVE NEGATIVE Ur Tricyclic Antidepressants Screen NEGATIVE NEGATIVE Urine Phencyclidine Screen NEGATIVE NEGATIVE Urine Amphetamines Screen NEGATIVE NEGATIVE Urine Methamphetamines Screen NEGATIVE NEGATIVE Urine Benzodiazepines Screen POSITIVE H NEGATIVE Urine Cocaine Screen NEGATIVE NEGATIVE Urine Cannabinoids Screen NEGATIVE NEGATIVE Physical Exam-(CHC) Physical Exam Vital Signs VS - Last 72 Hours, by Label 08/28/19 08/28/19 08/28/19 08/28/19 20:24 22:20 23:20 23:20 Temp 36.2 36.0 Pulse 80 77 Resp 16 16 B/P (MAP) 132/77 (95) 118/69 Pulse Ox 96 96 96 O2 Delivery Room Air Room Air Room Air 08/28/19 08/28/19 08/28/19 08/29/19 23:30 23:32 23:45 00:00 Pulse 68 67 74 B/P (MAP) 124/85 (98) 100/64 (76) Pulse Ox 95 96 96 O2 Delivery Room Air Room Air Room Air 08/29/19 08/29/19 08/29/19 08/29/19 00:00 00:15 00:30 01:00 Pulse 75 77 77 66 B/P (MAP) 110/64 (79) 99/71 (80) 96/65 (75) Pulse Ox 94 94 93 O2 Delivery Room Air Room Air Room Air 08/29/19 08/29/19 08/29/19 08/29/19 01:00 02:00 03:00 04:00 Pulse 66 70 71 B/P (MAP) 108/71 (83) 100/69 (79) 107/73 (84) Pulse Ox 98 95 97 95 O2 Delivery Room Air Room Air Room Air Room Air 08/29/19 08/29/19 08/29/19 08/29/19 04:00 07:00 08:00 08:00 Pulse 62 57 62 B/P (MAP) 111/73 (86) 124/84 (97) Pulse Ox 97 98 O2 Delivery Room Air Room Air Room Air 08/29/19 08/29/19 08/29/19 08/29/19 08:00 08:00 12:00 12:00 Temp 36.2 36.2 Pulse 69 Resp 16 B/P (MAP) 132/82 (99) Pulse Ox 96 100 97 O2 Delivery Room Air Room Air Room Air 08/29/19 12:22 Pulse 74 Capillary Refill : Less Than 3 Seconds General Appearance: WD/WN, no apparent distress Eyes: Bilateral Eye Normal Inspection Respiratory: lungs clear, normal breath sounds Cardiovascular: regular rate, rhythm, no murmur Gastrointestinal: normal bowel sounds, non tender, soft Extremities: no pedal edema Neurologic/Psychiatric: alert, normal mood/affect Skin: normal color, warm/dry Short Stay Diagnosis Discharge Diagnosis-Short Stay Admission Diagnosis See problem list Final Discharge Diagnosis See problem list Conclusion Plan Follow up with primary provider within one week of discharge Was the Problem List Reviewed?: Yes Problem List (1) Drug overdose Qualifiers: Qualified Codes: T50.904A - Poisoning by unspecified drugs, medicaments and biological substances, undetermined, initial encounter Status: Acute Clinical Quality Measures DVT/VTE Risk/Contraindication: Risk Factor Score Per Nursin RFS Level Per Nursing on Admit: 2=Moderate Assessment/Plan Assessment/Plan Admission Status: Observation (1) Drug overdose Status: Acute Assessment & Plan: Denies suicidal intent, but did hope to sleep "and forget everything". QTc slightly long on initial EKG, repeat normal. Screened by [facility] and agreed not currently suicidal, will follow up with her . Qualifiers: Qualified Codes: T50.904A - Poisoning by unspecified drugs, medicaments and biological substances, undetermined, initial encounter SILVINA PATEL MD Aug 29, 2019 13:26
[2019-08-29] MEDS ORDERED: IBUP-2185 PO (13:33)
[2019-08-29] MEDS ORDERED: BUSP7.5T5 PO (13:33)
[2019-08-29] MEDS ORDERED: STRAT40CAP PO (13:33)
[2019-08-29] MEDS ORDERED: ALPR1TAB2 PO (13:33)
--- NOTE | 2019-08-29 13:35 | NUR ---
SPOKE WITH THE PT AND WENT THRU THE EXT MED HISTORY TO COMPLETE THE MED REC ALL MEDICATIONS LISTED ON THE EXT MED HISTORY OTC MEDS: IBUPROFEN
--- NOTE | 2019-08-29 18:19 | NUR ---
THIS NURSE EDUCATED PT ON DISCHARGE INSTRUCTIONS AND HOME MEDICATION LIST. PT STATED UNDERSTANDING. PT STATED UNDERSTANDING OF SAFETY PLAN. PT STATES SHE IS NOT SUICIDAL.
== END 2019-08-29 20:45 | disposition home or self-care (01) ==
LOC: EDUNIT# 20:17 → ER FS 20:23 → ICU 22:05
PROVIDERS: ADMIT Family Medicine; ATTEND Family Medicine
DX: T50.904A Poisoning by unspecified drugs, medicaments and biological substances, undetermined, initial encounter (principal); T14.91XA Suicide attempt, initial encounter; F17.210 Nicotine dependence, cigarettes, uncomplicated; F41.9 Anxiety disorder, unspecified; F32.9 Major depressive disorder, single episode, unspecified; Z88.0 Allergy status to penicillin; Z79.899 Other long term (current) drug therapy; Z98.51 Tubal ligation status; Z83.3 Family history of diabetes mellitus
CPT/HCPCS: 36415; 80053; 80306; 80320; 80329; 81000; 84703; 85025; 87088; 93005; 93041

== ENCOUNTER 2019-11-16 22:41 | Emergency (ER) | payer SELFPAY ==
[~2019-11-16] VITALS: Ht 180.3 cm; Wt 108.6 kg
[~2019-11-16 22:41] MED LIST changes: +ALPR1TAB2 PO; +BUSP7.5T5 PO; +IBUP-2185 PO; +STRAT40CAP PO
[2019-11-16] MEDS ORDERED: KETOROLAC 60 MG/2 ML VIAL IM ONE (23:45)
[2019-11-16] MEDS ORDERED: CYCL10TA9 PO (23:45)
[2019-11-16 23:51] VITALS: BP 120/76
--- NOTE | 2019-11-16 23:52 | ED Back Pain ---
General Chief Complaint: Back Problems Stated Complaint: ABD/BACK PAIN Nursing Triage Note: pt states roberts and low back pain for several days, no known injury Nursing Sepsis Screen: No Definite Risk History of Present Illness Date Seen by Provider: Nov 16, 2019 Time Seen by Provider: 23:30 Initial Comments Patient is a 34-year-old female whith h/o migraines who presents with multiple medical complaints. Patient reports persistent retro-orbital migraine-like hea dache for the past several days. Describes headache as dull, throbbing and worse with activity. Patient just completed last menstrual period. Patient's reports nausea, no vomiting. No neck pain, stiffness rash or fever. Patient is taking ibuprofen and Tylenol without relief. Patient also reports lower back pain which is nonradiating. Worse with palpation and movement. No extremity weakness loss of sensation bowel or bladder incontinence. No falls or injuries. No other acute symptoms or complaints. Previous tubal ligation. Patient dorve self to the ED. Location: Lumbar Spine Timing/Duration: 4-5 Days Severity: Moderate Pain/Injury Location: None Modifying Factors: Improves With Movement, Improves With Pain Medication, Improves With Rest Associated Symptoms: lower back pain Allergies and Home Medications Allergies Uncoded Allergies: pcn (Allergy, Mild, 02/25/19) PCN (Allergy, Unknown, 06/24/18) Home Medications Alprazolam 1 Mg Tablet, 1 MG PO DAILY PRN for ANXIETY, (Reported) Atomoxetine 40 Mg Cap, 40 MG PO DAILY, (Reported) Buspirone HCl 7.5 Mg Tablet, 7.5 MG PO BID, (Reported) Cyclobenzaprine HCl 10 Mg Tablet, 10 MG PO Q8H PRN for SPASMS Prescribed by: ROBERTA SAMUEL on 11/16/19 9964 Ibuprofen 200 Mg Capsule, 400-600 MG PO Q8H PRN for PAIN-MILD (1-4), (Reported) Patient Home Medication List Home Medication List Reviewed: Yes Review of Systems Constitutional: see HPI EENTM: see HPI Respiratory: see HPI Cardiovascular: see HPI Gastrointestinal: see HPI Genitourinary: see HPI : No Musculoskeletal: see HPI Skin: see HPI Psychiatric/Neurological: See HPI Past Njazbaj-Xzqzad-Ggmvjb Hx Past Med/Social Hx: Reviewed Nursing Past Med/Soc Hx Patient Social History Alcohol Use: Denies Use Recreational Drug Use: No Type Used: Cigarettes 2nd Hand Smoke Exposure: Yes Recent Foreign Travel: No Contact w/Someone Who Travel: No Recent Infectious Disease Expo: No Recent Hopitalizations: No Physical Abuse: No Sexual Abuse: No Mistreated: No Fear: No Seasonal Allergies Seasonal Allergies: No Past Medical History Surgeries: Yes Tubal Ligation Respiratory: No Cardiac: No 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 Diabetes Physical Exam Vital Signs Vital Signs - First Documented 11/16/19 23:07 Temp 36.4 Pulse 83 Resp 18 B/P (MAP) 140/81 (100) Pulse Ox 98 O2 Delivery Room Air Capillary Refill : Less Than 3 Seconds Height, Weight, BMI Height: 5'5.00" Weight: 145lbs. oz. 65.246058xa; 33.00 BMI Method:Estimated General Appearance: No Apparent Distress, WD/WN HEENT: PERRL/EOMI, Normal ENT Inspection, Pharynx Normal Neck: Full Range of Motion, Non Tender, Supple Cardiovascular: Regular Rate, Rhythm Respiratory: Lungs Clear Gastrointestinal: Non Tender, Soft Back: No CVA Tenderness, Muscle Spasm (lumbar) Extremity: Normal Capillary Refill, Normal Inspection Neurologic/Psychiatric: Alert, Oriented x3, No Motor/Sensory Deficits, Normal Mood/Affect, extended day teacher II-XII Norm as Tested Skin: Normal Color Progress/Results/Core Measures Results/Orders My Orders Orders - ROBERTA SAMUEL DO Ketorolac Injection (Toradol Injection) (11/16/19 23:45) Vital Signs/I&O 11/16/19 23:07 Temp 36.4 Pulse 83 Resp 18 B/P (MAP) 140/81 (100) Pulse Ox 98 O2 Delivery Room Air Blood Pressure Mean: 100 Departure Communication (Admissions) Typical migraine headache and mechanical back pain. No neruo deficits. Will tx supportively with PCP follow up. Impression Primary Impression: Back pain Additional Impression: Migraine Disposition: 01 HOME, SELF-CARE Condition: Stable Departure-Patient Inst. Patient Instructions: Migraines (DC), Back Muscle Strain (DC) Add. Discharge Instructions: Please go home and rest. Avoid heavy lifting, and strenouos physcal activity. Take Excedrin Migraine if headache persists, and flexeril and Advil as needed for back pain. Follow up with your PCP as needed if symptoms persist. All discharge instructions reviewed with patient and/or family. Voiced understanding. Scripts Cyclobenzaprine HCl (Cyclobenzaprine HCl) 10 Mg Tablet 10 MG PO Q8H PRN for SPASMS, #15 TAB 0 Refills Prov: ROBERTA SAMUEL DO 11/16/19 ROBERTA SAMUEL DO Nov 16, 2019 23:52
--- OUTSIDE RECORDS SUMMARY | 2019-11-17 02:18 | XMS REPORT | Continuity of Care Document ---
Author Organization Unknown Address Unknown Phone Unavailable Allergies Active Description Code Type Severity Reaction Onset Reported/Identified Relationship to Patient Clinical Status Yes PCN PCN Unknown N/A 06/24/2018 Yes pcn pcn Mild N/A 02/24/2019 Yes pcn pcn Mild N/A 02/24/2019 Medications Medication Packaging Start Date St op Date Route Dosage Sig MECLIZINE TAB, 25 MG (ANTIVERT) 05/15/2019 05/15/2019 ORAL 1 NS 0.9##37; 1000 ML 05/15/2019 05/15/2019 IV 1 Problems Date Dx Coded Attending Type Code Diagnosis Diagnosed By 06/30/2018 PHAN MILLS DO Ot G43.909 MIGRAINE, UNSP, NOT INTRACTABLE, WITHOUT 06/30/2018 PHAN MILLS DO Ot R51 HEADACHE 06/30/2018 PHAN MILLS DO Ot Z88. 0 ALLERGY STATUS TO PENICILLIN 07/22/2018 ROBERTA SAMUEL DO Ot F17.210 NICOTINE DEPENDENCE, CIGARETTES, UNCOMPL 07/22/2018 ROBERTA SAMUEL DO Ot R10.9 UNSPECIFIED ABDOMINAL PAIN 07/22/2018 ROBERTA SAMUEL DO Ot R11.2 NAUSEA WITH VOMITING, UNSPECIFIED 07/22/2018 ROBERTA SAMUEL DO Ot R19.7 DIARRHEA, UNSPECIFIED 07/22/2018 ROBERTA SAMUEL DO Ot Z88.0 ALLERGY STATUS TO PENICILLIN 07/24/2018 ROBERTA SAMUEL DO Ot F17.210 NICOTINE DEPENDENCE, CIGARETTES, UNCOMPL 07/24/2018 ROBERTA SAMUEL DO Ot R10.9 UNSPECIFIED ABDOMINAL PAIN 07/24/2018 ROBERTA SAMUEL DO Ot R11.2 NAUSEA WITH VOMITING, UNSPECIFIED 07/24/2018 ROBERTA SAMUEL DO Ot R19.7 DIARRHEA, UNSPECIFIED 07/24/2018 ROBERTA SAMUEL DO Ot Z88.0 ALLERGY STATUS TO PENICILLIN 08/03/2018 ANTONI TORRES MD Ot J02. 9 ACUTE PHARYNGITIS, UNSPECIFIED 08/03/2018 ANTONI TORRES MD Ot Z87.891 PERSONAL HISTORY OF NICOTINE DEPENDENCE 08/03/2018 MELISSA ALEGRIA, ANTONI Balbuena Ot Z88. 0 ALLERGY STATUS TO PENICILLIN 08/06/2018 MELISSA ALEGRIA, ANTONI Balbuena Ot J02. 9 ACUTE PHARYNGITIS, UNSPECIFIED 08/06/2018 MELISSA ALEGRIA, ANTONI Balbuena Ot Z87.891 PERSONAL HISTORY OF NICOTINE DEPENDENCE 08/06/2018 ANTONI TORRES MD Ot Z88. 0 ALLERGY STATUS TO PENICILLIN 02/24/2019 Ot M54.2 CERV ICALGIA 02/24/2019 Ot S29.012A S TRAIN OF MUSCLE AND TENDON OF BACK WALL 02/24/2019 Ot Z88.0 BRENDA RGY STATUS TO PENICILLIN 05/16/2019 MITTSLINA H6502 Acute serous otitis media, left ear 05/16/2019 MITTS, LINA August R42 Dizziness and giddiness 05/16/2019 MITTSLINA R55 Syncope and collapse 08/29/2019 SILVINA FREEDMAN MD Ot F17.210 NICOTINE DEPENDENCE, CIGARETTES, UNCOMPL 08/29/2019 SILVINA FREEDMAN MD Ot F32 .9 MAJOR DEPRESSIVE DISORDER, SINGLE EPISOD 08/29/2019 SILVINA FREEDMAN MD Ot F41 .9 ANXIETY DISORDER, UNSPECIFIED 08/29/2019 SILVINA FREEDMAN MD Ot T14.91XA SUICIDE ATTEMPT, INITIAL ENCOUNTER 08/29/2019 SILVINA FREEDMAN MD Ot T50.904A POISONING BY UNSP DRUG/MEDS/BIOL SUBST, 08/29/2019 SILVINA FREEDMAN MD Ot Z79.899 OTHER NURSING HOME (CURRENT) DRUG THERAPY 08/29/2019 SILVINA FREEDMAN MD Ot Z83 .3 FAMILY HISTORY OF DIABETES MELLITUS 08/29/2019 SILVINA FREEDMAN MD Ot Z88 .0 ALLERGY STATUS TO PENICILLIN 08/29/2019 SILVINA FREEDMAN MD Ot Z98.51 TUBAL LIGATION STATUS 08/29/2019 SILVINA FREEDMAN MD Ot F17.210 NICOTINE DEPENDENCE, CIGARETTES, UNCOMPL 08/29/2019 SILVINA FREEDMAN MD Ot F32 .9 MAJOR DEPRESSIVE DISORDER, SINGLE EPISOD 08/29/2019 SILVINA FREEDMAN MD Ot F41 .9 ANXIETY DISORDER, UNSPECIFIED 08/29/2019 SILVINA FREEDMAN MD Ot T14.91XA SUICIDE ATTEMPT, INITIAL ENCOUNTER 08/29/2019 SILVINA FREEDMAN MD Ot T50.904A POISONING BY UNSP DRUG/MEDS/BIOL SUBST, 08/29/2019 SILVINA FREEDMAN MD Ot Z79.899 OTHER NURSING HOME (CURRENT) DRUG THERAPY 08/29/2019 SILVINA FREEDMAN MD Ot Z83 .3 FAMILY HISTORY OF DIABETES MELLITUS 08/29/2019 SILVINA FREEDMAN MD N Ot Z88 .0 ALLERGY STATUS TO PENICILLIN 08/29/2019 SILVINA FREEDMAN MD N Ot Z98.51 TUBAL LIGATION STATUS 09/09/2019 SILVINA FREEDMAN MD Ot F17.210 NICOTINE DEPENDENCE, CIGARETTES, UNCOMPL 09/09/2019 SILVINA FREEDMAN MD Ot F32 .9 MAJOR DEPRESSIVE DISORDER, SINGLE EPISOD 09/09/2019 SILVINA FREEDMAN MD Ot F41 .9 ANXIETY DISORDER, UNSPECIFIED 09/09/2019 SILVINA FREEDMAN MD Ot T14.91XA SUICIDE ATTEMPT, INITIAL ENCOUNTER 09/09/2019 SILVINA FREEDMAN MD Ot T50.904A POISONING BY UNSP DRUG/MEDS/BIOL SUBST, 09/09/2019 SILVINA FREEDMAN MD Ot 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 09/09/2019 SILVINA FREEDMAN MD Ot Z83 .3 FAMILY HISTORY OF DIABETES MELLITUS 09/09/2019 SILVINA FREEDMAN MD Ot Z88 .0 ALLERGY STATUS TO PENICILLIN 09/09/2019 SILVINA FREEDMAN MD N Ot Z98.51 TUBAL LIGATION STATUS 09/09/2019 SILVINA FREEDMAN MD N Ot F17.210 NICOTINE DEPENDENCE, CIGARETTES, UNCOMPL 09/09/2019 SILVINA FREEDMAN MD Ot F32 .9 MAJOR DEPRESSIVE DISORDER, SINGLE EPISOD 09/09/2019 SILVINA FREEDMAN MD Ot F41 .9 ANXIETY DISORDER, UNSPECIFIED 09/09/2019 SILVINA FREEDMAN MD N Ot T14.91XA SUICIDE ATTEMPT, INITIAL ENCOUNTER 09/09/2019 SILVINA FREEDMAN MD Ot T50.904A POISONING BY UNSP DRUG/MEDS/BIOL SUBST, 09/09/2019 SILVINA FREEDMAN MD, Ot Z79.899 OTHER NURSING HOME (CURRENT) DRUG THERAPY 09/09/2019 SILVINA FREEDMAN MD, Ot Z83 .3 FAMILY HISTORY OF DIABETES MELLITUS 09/09/2019 SILVINA FREEDMAN MD, Ot Z88 .0 ALLERGY STATUS TO PENICILLIN 09/09/2019 SILVINA FREEDMAN MD, Ot Z98.51 TUBAL LIGATION STATUS Procedures There is no data. Results Test Result Range Urine beta human chorionic gonadotropin (hCG) measurement - 06/24/18 22:18 Urine beta human chorionic gonadotropin (hCG) measurem ent NEGATIVE NEGATIVE Automated dipstick urinalysis - 06/27/18 21:40 Urine color determination YELLOW NRG Urine clarity determination CLEAR NR G Urine pH measurement by test strip 7.5 5-9 Specific gravity of urine by test strip 1.015 1.016-1.022 Urine protein assay by test strip, semi-quantitative NEGATIVE NEGATIVE Urine glucose detection by automated test strip NE GATIVE NEGATIVE Erythrocytes detection in urine sediment by light micr oscopy NEGATIVE NEGATIVE Urine ketones detection by automated test strip NE GATIVE NEGATIVE Urine nitrite detection by test strip NEGATIVE NEGATIVE Urine total bilirubin detection by test strip NEGA TIVE NEGATIVE Urine urobilinogen measurement by automated test strip (mass/volume) 0.2 mg/dL NORMAL Urine leukocyte esterase detection by dipstick TRA CE NEGATIVE Urine beta human chorionic gonadotropin (hCG) measurement - 06/27/18 21:40 Urine beta human chorionic gonadotropin (hCG) measurem ent NEGATIVE NEGATIVE Streptococcus pyogenes antigen detection - 08/03/18 11:48 Streptococcus pyogenes antigen detection NEGATIVE NEGATIVE Bacterial throat culture - 08/03/18 11:4 8 Bacterial throat culture NBS NRG CBCD (AUTO DIFF) - 05/15/19 22:04 WBC [...] ZOSTER VIRUS ANTIBODY (IGG) 732.80 index NRG Complete blood count (CBC) with automate d white blood cell (WBC) differential - 08/28/19 20:34 Blood leukocytes automated count (number/volume) 8.7 10*3/uL 4.3-11.0 Blood erythrocytes automated count (number/volume) 4.66 10*6/uL 4.35-5.85 Venous blood hemoglobin measurement (mass/volume) 12.3 g/dL 11.5-16.0 Blood hematocrit (volume fraction) 39 % 35-52 Automated erythrocyte mean corpuscular volume 84 [ foz_us] 80-99 Automated erythrocyte mean corpuscular h emoglobin (mass per erythrocyte) 26 pg 25-34 Automated erythrocyte mean corpuscular h emoglobin concentration measurement (mass/volume) 32 g/dL 32-36 Automated erythrocyte distribution width ratio 14. 6 % 10.0- 14.5 Automated blood platelet count (count/volume) 284 10*3/uL 130-400 Automated blood platelet mean volume measurement 10.2 [foz_us] 7.4-10.4 Automated blood neutrophils/100 leukocytes 69 % 42-75 Automated blood lymphocytes/100 leukocytes 25 % 12-44 Blood monocytes/100 leukocytes 5 % 0-12 Automated blood eosinophils/100 leukocytes 1 % 0-10 Automated blood basophils/100 leukocytes 0 % 0-10 Blood neutrophils automated count (number/volume) 6.0 10*3 1.8-7.8 Blood lymphocytes automated count (number/volume) 2.2 10*3 1.0-4.0 Blood monocytes automated count (number/volume) 0. 5 10*3 0.0-1.0 Automated eosinophil count 0.1 10*3/uL 0 .0-0.3 Automated blood basophil count (count/volume) 0.0 10*3/uL 0.0-0.1 Comprehensive metabolic panel - 08/28/19 20:34 Serum or plasma sodium measurement (moles/volume) 140 mmol/L 135-145 Serum or plasma potassium measurement (moles/volume) 3.8 mmol/L 3.6-5.0 Serum or plasma chloride measurement (moles/volume) 105 mmol/L 98-107 Carbon dioxide 22 mmol/L 21-32 Serum or plasma anion gap determination (moles/volume) 13 mmol/L 5-14 Serum or plasma urea nitrogen measurement (mass/volume ) 12 mg/dL 7-18 Serum or plasma creatinine measurement (mass/volume) 0.62 mg/dL 0.60-1.30 Serum or plasma urea nitrogen/creatinine mass ratio 19 NRG Serum or plasma creatinine measurement w ith calculation of estimated glomerular filtration rate > NRG Serum or plasma glucose measurement (mass/volume) 98 mg/dL 70-105 Serum or plasma calcium measurement (mass/volume) 9.1 mg/dL 8.5-10.1 Serum or plasma total bilirubin measurement (mass/volu me) < mg/dL 0.1-1.0 Serum or plasma alkaline phosphatase raudel surement (enzymatic activity/volume) 92 U/L 40-136 Serum or plasma aspartate aminotransfera se measurement (enzymatic activity/volume) 12 U/L 5-34 Serum or plasma alanine aminotransferase measurement (enzymatic activity/volume) 8 U/L 0-55 Serum or plasma protein measurement (mass/volume) 7.0 g/dL 6.4-8.2 Serum or plasma albumin measurement (mass/volume) 4.1 g/dL 3.2-4.5 CALCIUM CORRECTED 9.0 mg/dL 8.5-10.1 Serum or plasma salicylates measurement (mass/volume) - 08/28/19 20:34 Serum or plasma salicylates measurement (mass/volume) < mg/dL 5.0-20.0 Serum or plasma acetaminophen measuremen t (mass/volume) - 08/28/19 20:34 Serum or plasma acetaminophen measurement (mass/volume ) < ug/mL 10-30 Serum or plasma ethanol measurement (mas s/volume) - 08/28/19 20:34 Serum or plasma ethanol measurement (mass/volume) < mg/dL <10 Complete urinalysis with reflex to cultu re - 08/28/19 20:50 Urine color determination STRAW NRG Urine clarity determination CLEAR NR G Urine pH measurement by test strip 6.5 5-9 Specific gravity of urine by test strip <= 1.016-1.022 Urine protein assay by test strip, semi-quantitative NEGATIVE NEGATIVE Urine glucose detection by automated test strip NE GATIVE NEGATIVE Erythrocytes detection in urine sediment by light micr oscopy NEGATIVE NEGATIVE Urine ketones detection by automated test strip NE GATIVE NEGATIVE Urine nitrite detection by test strip NEGATIVE NEGATIVE Urine total bilirubin detection by test strip NEGA TIVE NEGATIVE Urine urobilinogen measurement by automated test strip (mass/volume) 0.2 mg/dL < = 1.0 Urine leukocyte esterase detection by dipstick NEG ATIVE NEGATIVE Automated urine sediment erythrocyte cou nt by microscopy (number/high power field) [HPF] NRG Automated urine sediment leukocyte count by microscopy (number/high power field) [HPF] NRG Bacteria detection in urine sediment by light microsco py TRACE NRG Crystals detection in urine sediment by light microsco py PRESENT NRG Casts detection in urine sediment by light microscopy NONE NRG Mucus detection in urine sediment by light microscopy SMALL NRG Complete urinalysis with reflex to culture YES NRG Other elements identification in urine sediment by lig ht microscopy SODIUM URATE CRYSTAL NRG Urine drug screening test - 08/28/19 20: 50 Urine phencyclidine detection by screening method NEGATIVE NEGATIVE Urine benzodiazepines detection by screening method POSITIVE NEGATIVE Urine cocaine detection NEGATIVE NEGATI VE Urine amphetamines detection by screening method N EGATIVE NEGATIVE Urine methamphetamine detection by screening method NEGATIVE NEGATIVE Urine cannabinoids detection by screening method N EGATIVE NEGATIVE Urine opiates detection by screening method NEGATI VE NEGATIVE Urine barbiturates detection NEGATIVE N EGATIVE Screening urine tricyclic antidepressants detection NEGATIVE NEGATIVE Urine methadone detection by screening method NEGA TIVE NEGATIVE Urine oxycodone detection NEGATIVE NEGA TIVE Urine propoxyphene detection NEGATIVE N EGATIVE Bacterial urine culture - 08/28/19 20:50 Bacterial urine culture NG NRG Encounters ACCT No. Visit Date/Time Discharge Status Pt. Type Provider Facility Loc./Unit Complaint [id number] 05/15/2019 21:16:00 05/16/2019 00:22: 00 DIS Emergency [facility] 014 NAUSEA, VOMITING, DIZZY [id number] 10/31/2019 10:40:00 10/31/2019 23:59: 59 CLS Outpatient PETERSON SORTO [facility] [id number] 08/23/2019 14:40:00 Document Registration [id number] 05/15/2019 21:16:00 Document Registration [id number] 02/24/2019 02:03:00 02:20:00 DIS Emergency IAIN ALMEIDA DO [facility] ER FS NECK AND SHOULDER PAIN [id number] 08/28/2019 23:20:00 15:07:00 DIS Outpatient JASMINA ALEGRIA, SILVINA Tao [facility] ICU SUICIDAL [id number] 08/03/2018 11:38:00 12:36:00 DIS Emergency ANTONI TORRES MD [facility] ER FS SORE THROAT [id number] 06/27/2018 20:56:00 22:35:00 DIS Outpatient ROBERTA SAMUEL DO [facility] ER FS ABD PAIN [id number] 06/24/2018 21:48:00 00:32:00 DIS Outpatient PHAN MILLS DO [facility] FS HEAD PAIN [id number] 02/25/2019 08:38:00 Document Registration
== END 2019-11-16 23:51 | disposition home or self-care (01) ==
LOC: EDUNIT# 22:41 → ER FS 22:43
DX: M54.5 Low back pain (principal); G43.909 Migraine, unspecified, not intractable, without status migrainosus; F41.9 Anxiety disorder, unspecified; Z88.0 Allergy status to penicillin; Z77.22 Contact with and (suspected) exposure to environmental tobacco smoke (acute) (chronic)
CPT/HCPCS: 99285

== ENCOUNTER 2020-02-24 21:07 | Emergency (ER) | payer SELFPAY ==
[~2020-02-24] VITALS: Ht 180.3 cm; Wt 112.0 kg
[~2020-02-24 21:07] MED LIST changes: +CYCL10TA9 PO
[2020-02-24 21:11] VITALS: BP 145/99
--- NOTE | 2020-02-24 21:38 | ED General ---
General Chief Complaint: Abdominal/GI Problems Stated Complaint: NAUSEA,HEADACHE,DIARRHEA Nursing Triage Note: Patient states that she had gotten nauseated earlier with no vomiting. Patient is not currently nauseated. Patient states that she had to call into work because of the nausea and knows that they want a doctors note. Patient also reports diarrhea earlier today. Nursing Sepsis Screen: No Definite Risk Source of Information: Patient History of Present Illness Date Seen by Provider: Feb 24, 2020 Time Seen by Provider: 21:08 Initial Comments 34 yo female presents with complaints of feeling nauseated with a headache. She had 3 episodes of diarrhea today. She has been under extra stress. She was concerned that maybe she had COVID. She had been around her mother was exposed to her grandmother who has COVID. She denies any fever or chills. She has had no cough or congestion. She has felt rundown and tired. She is working 2 jobs and u nder extra stress with moving into a new house. She states that she is trying to get the new house ready for the winter. As she was heading towards her second job tonight she started feeling worse and called in stating that she was sick and could not make it to work. Because of that she knew she would need a doctor's note came to be evaluated and tested for COVID here in the ED. Allergies and Home Medications Allergies Uncoded Allergies: pcn (Allergy, Mild, 02/25/19) PCN (Allergy, Unknown, 06/24/18) Home Medications Alprazolam 1 Mg Tablet, 1 MG PO DAILY PRN for ANXIETY, (Reported) Atomoxetine 40 Mg Cap, 40 MG PO DAILY, (Reported) Buspirone HCl 7.5 Mg Tablet, 7.5 MG PO BID, (Reported) Cyclobenzaprine HCl 10 Mg Tablet, 10 MG PO Q8H PRN for SPASMS Prescribed by: ROBERTA SAMUEL on 11/16/19 9795 Ibuprofen 200 Mg Capsule, 400-600 MG PO Q8H PRN for PAIN-MILD (1-4), (Reported) Patient Home Medication List Home Medication List Reviewed: Yes Review of Systems Review of Systems Constitutional: No chills, No fever; malaise EENTM: no symptoms reported Respiratory: no symptoms reported Cardiovascular: no symptoms reported Gastrointestinal: see HPI Genitourinary: no symptoms reported Musculoskeletal: no symptoms reported Skin: no symptoms reported Psychiatric/Neurological: Headache; Denies Numbness, Denies Paresthesia Hematologic/Lymphatic: No Symptoms Reported Past Knptwzn-Ifbwvw-Pxedbc Hx Past Med/Social Hx: Reviewed Nursing Past Med/Soc Hx Patient Social History Alcohol Use: Denies Use Recreational Drug Use: No Smoking Status: Current Everyday Smoker Type Used: Cigarettes 2nd Hand Smoke Exposure: Yes Recent Foreign Travel: No Contact w/Someone Who Travel: No Recent Infectious Disease Expo: No Recent Hopitalizations: No Physical Abuse: No Sexual Abuse: No Mistreated: No Fear: No Seasonal Allergies Seasonal Allergies: No Past Medical History Surgeries: Yes Tubal Ligation Respiratory: No Cardiac: No 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 Diabetes Physical Exam Vital Signs Vital Signs - First Documented 02/24/20 21:11 Temp 37.3 Pulse 91 Resp 18 B/P (MAP) 145/99 (114) Pulse Ox 97 O2 Delivery Room Air Capillary Refill : Less Than 3 Seconds Height, Weight, BMI Height: 5'5.00" Weight: 145lbs. oz. 65.677710gs; 34.00 BMI Method:Estimated General Appearance: No Apparent Distress, WD/WN HEENT: PERRL/EOMI, Pharynx Normal Neck: Full Range of Motion, Normal Inspection, Non Tender, Supple Respiratory: Chest Non Tender, Lungs Clear, Normal Breath Sounds, No Accessory Muscle Use, No Respiratory Distress Cardiovascular: Regular Rate, Rhythm, No Edema, Normal Peripheral Pulses Gastrointestinal: Normal Bowel Sounds, No Pulsatile Mass, Non Tender, Soft Extremity: Normal Capillary Refill, Normal Range of Motion, No Pedal Edema Neurologic/Psychiatric: Alert, Oriented x3, No Motor/Sensory Deficits Skin: Normal Color, Warm/Dry Progress/Results/Core Measures Suspected Sepsis Recent Fever Within 48 Hours: No Infection Criteria Present: None New/Unexplained Altered Menta: No Sepsis Screen: No Definite Risk SIRS Temperature: Pulse: 91 Respiratory Rate: 18 Blood Pressure 145 /99 Mean: 114 Results/Orders Lab Results Laboratory Tests Test 02/24/20 21:40 Range/Units My Orders Orders - LORRAINE CRAIN MD Coronavirus Sars-Cov-2 So 2018 (02/24/20 21:32) Vital Signs/I&O 02/24/20 21:11 Temp 37.3 Pulse 91 Resp 18 B/P (MAP) 145/99 (114) Pulse Ox 97 O2 Delivery Room Air Capillary Refill : Less Than 3 Seconds Blood Pressure Mean: 114 Progress Note : Progress Note Reassured patient that there were no obvious signs of acute illness. We will send a COVID swab based on her symptoms of GI illness and possible exposure to Covid. Follow up with clinic for continued concerns. Departure Impression Primary Impression: Headache Qualified Codes: R51 - Headache Additional Impressions: Nausea alone Diarrhea Qualified Codes: R19.7 - Diarrhea, unspecified Disposition: HOME, SELF-CARE Condition: Stable Departure-Patient Inst. Decision time for Depature: 21:35 Referrals: PETERSON SORTO APRN (PCP) Primary Care Physician JADEN PENN MD (Family) Primary Care Physician Patient Instructions: Coronavirus Disease 2019 (COVID-19) Tests, Coronavirus Disease 2019 (COVID-19) and Outpatient Procedures, Headache, Adult (DC), Nausea and Vomiting, Adult (DC) Add. Discharge Instructions: You should self quarantine until you have negative test results for your Covid- 19 swab. Stay well hydrated and get plenty of rest Check back with clinic for further concerns All discharge instructions reviewed with patient and/or family. Voiced underst anding. Work/School Note: Work Release Form Date Seen in the Emergency Department: O 2019 Return to Work: Feb 27, 2020 Other Restrictions Listed Below: Off work until negative COVID-19 test results. LORRAINE CRAIN MD Feb 24, 2020 21:38
== END 2020-02-24 21:40 | disposition home or self-care (01) ==
LOC: EDUNIT# 21:07 → ER FS 21:09
DX: R51.9 Headache, unspecified (principal); R11.0 Nausea; R19.7 Diarrhea, unspecified; F41.9 Anxiety disorder, unspecified; F17.210 Nicotine dependence, cigarettes, uncomplicated; Z83.3 Family history of diabetes mellitus; Z88.0 Allergy status to penicillin; Z20.828 Contact with and (suspected) exposure to other viral communicable diseases
CPT/HCPCS: 99282; U0002; 87635

== ENCOUNTER 2020-07-26 11:00 | Emergency (ER) | payer SELFPAY ==
[~2020-07-26] VITALS: Ht 180 cm; Wt 111.0 kg
[2020-07-26] MEDS ORDERED: LACTATED RINGERS 1,000 ML IV STA (11:37)
--- NOTE | 2020-07-26 11:44 | ED GI ---
General Chief Complaint: Abdominal/GI Problems Stated Complaint: VOMITING Nursing Triage Note: PA REPORTS N/V FOR 2-3 DAYS. Sepsis Screen: No Definite Risk (JIM GALLO,) History of Present Illness Date Seen by Provider: Jul 26, 2020 Time Seen by Provider: 11:39 Initial Comments Ms. Aldana is a 34-year-old female who presented to the [facility] for nausea and vomiting x2-3 days. She denies any known trigger for the nausea/vomiting. Frank reyes was seen by her PCP on 07/25 and was given Zofran that has not been helping. COVID test negative on 07/25. Denies hematemesis. She is unable to eat anything at this time but is trying to eat crackers and drink water. She denies the possibility of being as she has a history of tubal ligation and started her cycle 07/26. Does have diarrhea occasionally without blood. Denies known fever but admits to chills. Denies burning with urination. On further questioning, she admits to taking buspar, prozac, and zyprexa for anxiety and depression but has not had any of those medications since last . She states they are lost "in my car somewhere". Timing/Duration: 2-3 Days (JIM GALLO,) Timing/Duration: 2-3 Days, Other (Nausea, vomiting and diarrhea without pain) Severity/Quality: Other (None) Location: Other (None) Associated Symptoms: No Back Pain, No Fever/Chills; Nausea/Vomiting; No Weakness (MICHELLE SALAZAR MD) Allergies and Home Medications Allergies Coded Allergies: lurasidone (Verified Allergy, Mild, rash, 07/26/20) Uncoded Allergies: pcn (Allergy, Mild, 02/25/19) Home Medications Alprazolam 1 Mg Tablet, 1 MG PO DAILY PRN for ANXIETY, (Reported) Atomoxetine 40 Mg Cap, 40 MG PO DAILY, (Reported) Buspirone HCl 7.5 Mg Tablet, 7.5 MG PO BID, (Reported) Cyclobenzaprine HCl 10 Mg Tablet, 10 MG PO Q8H PRN for SPASMS Prescribed by: ROBERTA SAMUEL on 11/16/19 6099 Ibuprofen 200 Mg Capsule, 400-600 MG PO Q8H PRN for PAIN-MILD (1-4), (Reported) Patient Home Medication List Home Medication List Reviewed: Yes (MICHELLE SALAZAR MD) Review of Systems Review of Systems Constitutional: chills EENTM: No Symptoms Reported Respiratory: Denies Cough, Denies Shortness of Air Cardiovascular: Denies Chest Pain, Denies Irregular Heart Rate Gastrointestinal: Diarrhea, Nausea, Poor Appetite Genitourinary: Denies Burning, Denies Frequency Musculoskeletal: No joint pain, No muscle pain Skin: no symptoms reported Psychiatric/Neurological: No Symptoms Reported Endocrine: No Symptoms Reported Hematologic/Lymphatic: No Symptoms Reported (JIM GALLO,) All Other Systems Reviewed Negative Unless Noted: Yes (MICHELLE SALAZAR MD) Past Iftrtjr-Etldey-Vpsxrb Hx Past Med/Social Hx: Reviewed Nursing Past Med/Soc Hx (MICHELLE SALAZAR MD) Patient Social History Alcohol Use: Occasionally Uses Type Used: Cigarettes 2nd Hand Smoke Exposure: Yes Recent Infectious Disease Expo: No Recent Hopitalizations: No (JIM GALLO,) Seasonal Allergies Seasonal Allergies: No (JIM GALLO,) Past Medical History Surgeries: Yes Tubal Ligation Respiratory: No Cardiac: No Neurological: No SO[employer] History: Tubal Ligation Genitourinary: No Gastrointestinal: No Musculoskeletal: No Hypothyroidsim HEENT: No Cancer: No Psychosocial: Yes Anxiety, Depression Integumentary: No Blood Disorders: No (JIM GALLO,) Family Medical History Reviewed Nursing Family Hx (MICHELLE SALAZAR MD) Patient reports no known family medical history. Diabetes (JIM GALLO,) Physical Exam Vital Signs Vital Signs - First Documented 07/26/20 11:03 Temp 36.4 Pulse 92 Resp 18 B/P (MAP) 141/81 (101) Pulse Ox 100 O2 Delivery Room Air (MICHELLE SALAZAR MD) Vital Signs Capillary Refill : Less Than 3 Seconds (JIM GALLO,) Height/Weight/BMI Height: 5'5.00" Weight: 145lbs. oz. [id number]; 34.00 BMI Method:Estimated General Appearance: WD/WN, no apparent distress HEENT: PERRL/EOMI, TMs normal Neck: supple, normal inspection Respiratory: lungs clear, normal breath sounds Cardiovascular: regular rate, rhythm, no murmur Gastrointestinal: normal bowel sounds, non tender Extremities: no pedal edema, normal capillary refill Neurologic/Psychiatric: alert, oriented x 3 Skin: normal color, warm/dry Lymphatic: no adenopathy (JIM GALLO,) General Appearance: WD/WN, no apparent distress Cardiovascular: regular rate, rhythm, no murmur Gastrointestinal: non tender, soft Back: normal inspection, no CVA tenderness, no vertebral tenderness Neurologic/Psychiatric: alert, oriented x 3 Skin: normal color, warm/dry (MICHELLE SALAZAR MD) Progress/Results/Core Measures Results/Orders Lab Results Laboratory Tests Test 07/26/20 11:40 Range/Units White Blood Count 9.7 4.3-11.0 10^3/uL Red Blood Count 4.90 4.35-5.85 10^6/uL Hemoglobin 12.5 11.5-16.0 G/DL Hematocrit 39 35-52 % Mean Corpuscular Volume 79 L 80-99 FL Mean Corpuscular Hemoglobin 26 25-34 PG Mean Corpuscular Hemoglobin Concent 32 32-36 G/DL Red Cell Distribution Width 15.7 H 10.0-14.5 % Platelet Count 319 130-400 10^3/uL Mean Platelet Volume 10.3 7.4-10.4 FL Sodium Level 136 135-145 MMOL/L Potassium Level 3.9 3.6-5.0 MMOL/L Chloride Level 104 98-107 MMOL/L Carbon Dioxide Level 21 21-32 MMOL/L Anion Gap 11 5-14 MMOL/L Blood Urea Nitrogen 15 7-18 MG/DL Creatinine 0.62 0.60-1.30 MG/DL Estimat Glomerular Filtration Rate > 60 BUN/Creatinine Ratio 24 Glucose Level 110 H 70-105 MG/DL Calcium Level 9.3 8.5-10.1 MG/DL Corrected Calcium 8.5-10.1 MG/DL Total Bilirubin 0.3 0.1-1.0 MG/DL Aspartate Amino Transf (AST/SGOT) 13 5-34 U/L Alanine Aminotransferase (ALT/SGPT) 9 0-55 U/L Alkaline Phosphatase 105 40-136 U/L Total Protein 7.9 6.4-8.2 GM/DL Albumin 4.6 H 3.2-4.5 GM/DL Serum Test, Qualitative NEGATIVE NEGATIVE (MICHELLE SALAZAR MD) My Orders Orders - MICHELLE SALAZAR MD Cbc No Diff (07/26/20 11:37) Comprehensive Metabolic Panel (07/26/20 11:37) Ondansetron Injection (Zofran Injectio (07/26/20 11:45) Lactated Ringers (Lr 1000 Ml Iv Solution (07/26/20 11:37) Ed Iv/Invasive Line Start (07/26/20 11:37) Hcg,Qualitative Serum (07/26/20 11:37) (MICHELLE SALAZAR MD) Medications Given in ED Current Medications Medications Dose Ordered Sig/Nay Route Start Time Stop Time Status Last Admin Dose Admin Ondansetron HCl 4 mg ONCE ONCE IVP 07/26/20 11:45 07/26/20 11:46 DC 07/26/20 11:44 4 MG (MICHELLE SALAZAR MD) Vital Signs/I&O 07/26/20 11:03 Temp 36.4 Pulse 92 Resp 18 B/P (MAP) 141/81 (101) Pulse Ox 100 O2 Delivery Room Air (MICHELLE SALAZAR MD) Blood Pressure Mean: 101 Progress Progress Note : Time: 11:45 Progress Note Discussed with patient plan of care with options to provide IVF, IV zofran, and run basic labs vs home for oral rehydration. Pt would like to proceed with fluids and labs. CBC, CMP ordered with test. LR and zofran. Also discussed importance of taking medications as prescribed and to find the lost medications. This likely has some influence on her symptoms. (JIM GALLO,) Progress Note : Progress Note I have seen and evaluated the patient and agree with above except as indicated. I have directed the plan of care. Patient was here with nausea, vomiting or diarrhea. She is able to eat and drink a little using water and crackers. Patient was given oral Zofran by her provider and did take 1 of those this morning but still had some symptoms so presented here. She denies significant abdominal pain, dysuria, blood in her urine, stool or vomit. Evaluation as above. Plan for IV and basic labs after discussion with the patient regarding options for care including conservative approach versus IV fluids. Patient elected for IV fluids. Monitor patient. 1228: Patient resting peacefully and has no complaints of discomfort. We will complete IV infusion of LR and discharged home. This was discussed with the patient who agrees and states she is doing better. Discharged home with return precautions. Patient verbalized understanding of instructions and agreement with plan. (MICHELLE SALAZAR MD) Departure Impression Primary Impression: Nausea and vomiting Qualified Codes: R11.2 - Nausea with vomiting, unspecified Additional Impression: Diarrhea Qualified Codes: R19.7 - Diarrhea, unspecified Disposition: HOME, SELF-CARE Condition: Improved Departure-Patient Inst. Decision time for Depature: 12:29 (MICHELLE SALAZAR MD) Referrals: PETERSON SORTO APRN (PCP) Primary Care Physician JADEN PENN MD (Family) Primary Care Physician Patient Instructions: Diarrhea, Adult ED, Nausea and Vomiting, Adult (DC) Add. Discharge Instructions: All discharge instructions reviewed with patient and/or family. Voiced understanding. Clear liquid or light diet for the next 24 hours and then advance as tolerated. Follow-up with your doctor in a few days for recheck. Return for worse pain, fever, vomiting, blood in your vomit or stool or other concerns as needed. Work/School Note: Work Release Form Date Seen in the Emergency Department: Jul 26, 2020 Return to Work: Jul 27, 2020 Restrictions: Return-No Vomiting(24hrs) JIM GALLO, Jul 26, 2020 11:44 MICHELLE SALAZAR MD Jul 26, 2020 12:31
[2020-07-26] MEDS ORDERED: ONDANSETRON 4 MG/2 ML (SDV) Z0FRAN IVP ONE (11:45)
[2020-07-26 12:07] LABS: HEMOGLOBIN 12.5 G/DL (11.5-16.0); WHITE BLOOD COUNT 9.7 10^3/uL (4.3-11.0)
[2020-07-26 12:08] LABS: MEAN PLATELET VOLUME 10.3 FL (7.4-10.4)
[2020-07-26 12:11] LABS: ALKALINE PHOSPHATASE 105 U/L (40-136); BILIRUBIN,TOTAL 0.3 MG/DL (0.1-1.0); BUN/CREATININE RATIO 24; CALCIUM 9.3 MG/DL (8.5-10.1); CARBON DIOXIDE 21 MMOL/L (21-32); CHLORIDE 104 MMOL/L (98-107); CREATININE SERUM 0.62 MG/DL (0.60-1.30); GFR ESTIMATED > 60; GLUCOSE 110 MG/DL (70-105); POTASSIUM 3.9 MMOL/L (3.6-5.0); SODIUM 136 MMOL/L (135-145)
[2020-07-26 12:12] LABS: ALANINE AMINOTRANSFERASE 9 U/L (0-55); ALBUMIN 4.6 GM/DL (3.2-4.5); TOTAL PROTEIN 7.9 GM/DL (6.4-8.2)
[2020-07-26 12:33] VITALS: BP 132/68
== END 2020-07-26 12:33 | disposition home or self-care (01) ==
LOC: EDUNIT# 11:00 → ER FS 11:02
DX: R11.2 Nausea with vomiting, unspecified (principal); R19.7 Diarrhea, unspecified; I10 Essential (primary) hypertension; F41.9 Anxiety disorder, unspecified; Z77.22 Contact with and (suspected) exposure to environmental tobacco smoke (acute) (chronic); Z20.822 Contact with and (suspected) exposure to COVID-19; Z88.0 Allergy status to penicillin; Z88.8 Allergy status to other drugs, medicaments and biological substances; Z83.3 Family history of diabetes mellitus
CPT/HCPCS: 36415; 80053; 84703; 85027